=== PATIENT | female | born 1940 | race Caucasian/White ===

== ENCOUNTER → 2016-04-19 | Outpatient (CLI) | payer MEDICARE ==
--- NOTE | 2016-04-20 09:59 | MM ---
Reason for exam: screening (asymptomatic). Last mammogram was performed 1 year ago. History: Patient is postmenopausal. U/S LT Cancelled Core of the left breast, March 20, 2011. Benign excisional biopsy of the right breast. Physical Findings: A clinical breast exam by your physician is recommended on an annual basis and results should be correlated with mammographic findings. MG 3D Screening Mammo W/Cad Bilateral CC and MLO view(s) were taken. Prior study comparison: April 18, 2015, bilateral MG screening mammo w CAD. March 23, 2013, bilateral digital screening mammo w/CAD. The breast tissue is extremely dense which could obscure a lesion on mammography. Finding #1: There is a 5 mm equal density (isodense), circumscribed oval mass in the inner quadrant, central position. Finding #2: There are typically benign calcifications in the right breast. There is a chronic nodularity in the left breast. ASSESSMENT: Incomplete: need additional imaging evaluation, BI-RAD 0 RECOMMENDATION: Ultrasound of the left breast. [facility] will attempt to contact patient to return for ultrasound.
== END | disposition home or self-care (01) ==
LOC: RADMAMWWP 12:34
PROVIDERS: ATTEND Family Medicine
DX: Z12.31 Encounter for screening mammogram for malignant neoplasm of breast (principal)
CPT/HCPCS: 77063; G0202

== ENCOUNTER → 2016-05-03 | Outpatient (CLI) | payer MEDICARE ==
--- NOTE | 2016-05-03 10:40 | USB ---
Reason for exam: additional evaluation requested from abnormal screening. History: Patient is postmenopausal. U/S LT Cancelled Core of the left breast, March 20, 2011. Benign excisional biopsy of the right breast. Physical Findings: Nurse did not find any significant physical abnormalities on exam. US Breast Workup Limited LT Left breast ultrasound demonstrates a 1.3 x 0.6 x 1.2cm oval, smooth lesion at 6 o'clock just under nipple, prominent duct. These results were verbally communicated with the patient and result sheet given to the patient on 05/03/16. ASSESSMENT: Probably benign, BI-RAD 3 RECOMMENDATION: Follow-up diagnostic mammogram of the left breast in 6 months.
== END | disposition home or self-care (01) ==
LOC: RADUSWWP 08:22
PROVIDERS: ATTEND Family Medicine
DX: R92.8 Other abnormal and inconclusive findings on diagnostic imaging of breast (principal)

== ENCOUNTER → 2016-11-14 | Outpatient (CLI) | payer MEDICARE ==
--- NOTE | 2016-11-14 09:55 | MM ---
Reason for exam: follow-up at short interval from prior study. Last mammogram was performed 7 months ago. History: Patient is postmenopausal. U/S LT Cancelled Core of the left breast, March 20, 2011. Benign excisional biopsy of the right breast. Physical Findings: Nurse did not find any significant physical abnormalities on exam. MG 3D Diag Mammo W/Cad LT CC and MLO view(s) were taken of the left breast. Prior study comparison: April 19, 2016, bilateral MG 3d screening mammo w/cad. April 18, 2015, bilateral MG screening mammo w CAD. The breast tissue is heterogeneously dense. This may lower the sensitivity of mammography. No change in findings, stable. These results were verbally communicated with the patient and result sheet given to the patient on 11/14/16. ASSESSMENT: Probably benign, BI-RAD 3 RECOMMENDATION: Follow-up diagnostic mammogram of both breasts in 6 months. Back on schedule for April 2017.
== END | disposition home or self-care (01) ==
LOC: RADMAMWWP 08:56
PROVIDERS: ATTEND Family Medicine
DX: R92.8 Other abnormal and inconclusive findings on diagnostic imaging of breast (principal)
CPT/HCPCS: G0206; G0279

== ENCOUNTER → 2017-11-13 | Outpatient (CLI) | payer MEDICARE ==
--- NOTE | 2017-11-13 09:12 | MM ---
Reason for exam: additional evaluation requested from prior study. Last mammogram was performed 1 year ago. History: Patient is postmenopausal. U/S LT Cancelled Core of the left breast, March 20, 2011. Benign excisional biopsy of the right breast. Physical Findings: Nurse did not find any significant physical abnormalities on exam. MG 3D Diag Mammo W/Cad ZAHIDA Bilateral CC and MLO view(s) were taken. Prior study comparison: November 14, 2016, left breast MG 3d diag mammo w/cad LT. April 19, 2016, bilateral MG 3d screening mammo w/cad. The breast tissue is heterogeneously dense. This may lower the sensitivity of mammography. No significant new findings when compared with previous films. These results were verbally communicated with the patient and result sheet given to the patient on 11/13/17. ASSESSMENT: Benign, BI-RAD 2 RECOMMENDATION: Routine screening mammogram of both breasts in 1 year.
== END | disposition home or self-care (01) ==
LOC: RADMAMWWP 08:26
PROVIDERS: ATTEND Family Medicine
DX: R92.8 Other abnormal and inconclusive findings on diagnostic imaging of breast (principal)
CPT/HCPCS: 77066; G0279; 77062

== ENCOUNTER → 2021-08-23 | Outpatient (CLI) | payer MEDICARE ==
--- NOTE | 2021-08-24 17:32 | MM ---
Reason for Exam: Screening (asymptomatic). Last mammogram was performed 3 year(s) and 10 month(s) ago. Patient History: Menarche at age 13. First Full-Term at age 24. Postmenopausal. Benign Excisional Biopsy on the right side. 03/20/2011, U/S LT Cancelled Core on the left side. Risk Values: Ana Rosa 5 year model risk: 1.8%. NCI Lifetime model risk: 3.0%. Prior Study Comparison: 04/19/2016 Bilateral Screening Mammogram, [facility]. 11/14/2016 Left Diagnostic Mammogram, [facility]. 11/13/2017 Bilateral Diagnostic Mammogram, [facility]. Tissue Density: The breast tissue is heterogeneously dense. This may lower the sensitivity of mammography. Findings: Analyzed By CAD. No significant changes when compared with prior studies. Chronic nodularity anterior left MLO view. Benign oil cyst calcification on the right. Overall Assessment: Benign, BI-RAD 2 Management: Screening Mammogram of both breasts in 1 year. Patient should continue monthly self breast exams. This exam should not preclude additional followup of suspicious palpable abnormalities. Electronically signed and approved by: Carlos Barahona M.D. Radiologist
== END | disposition home or self-care (01) ==
LOC: RADMAMWWP 13:11
PROVIDERS: ATTEND Family Medicine
DX: Z12.31 Encounter for screening mammogram for malignant neoplasm of breast (principal); Z78.0 Asymptomatic menopausal state
CPT/HCPCS: 77063; 77067

== ENCOUNTER → 2023-11-11 | Outpatient (CLI) | payer MEDICARE ==
--- NOTE | 2023-12-10 09:04 | US ---
Patient: Anya Rowe Ordering Physician: Unknown, Unknown ID: [id number] Phone, Pager: Phone: N/ A Pager: N/A : [phone] Age/Gender: 82Y, F Primary Location: N/A Procedure: US RENALS AND BLADDER Study Date: 11/11/2023 12:31:00 PM EXAMINATION TYPE: US kidneys/renal and bladder DATE OF EXAM: 11/12/2023 COMPARISON: NONE CLINICAL INDICATION: Unknown, old with history of ; EXAM MEASUREMENTS: Right Kidney: 10.8 x 4.5 x 4.1 cm. Multiple complex areas seen, largest seen at the upper pole measur es: 2.7 x 2.3 x 2.3 cm. Left kidney: 11.7 x 5.0 x 5.2 cm. Multiple complex areas seen, largest seen at the upper pole measure s 2.8 x 2.6 x 3.4 cm. Bladder: Appears wnl. Bilateral jets were seen. There is no evidence for hydronephrosis at this point in time. No nephrolithiasis is seen. The urin eduar bladder is anechoic. Bilateral ureteral jets are seen. IMPRESSION: Complex renal lesions may reflect a complex cyst. This can be further evaluated with CT.
== END | disposition home or self-care (01) ==
LOC: RADUSWWP 14:35
PROVIDERS: ATTEND Family Medicine
DX: R94.4 Abnormal results of kidney function studies
CPT/HCPCS: 76770

== ENCOUNTER → 2023-12-12 | Outpatient (CLI) | payer MEDICARE ==
--- NOTE | 2023-12-23 21:37 | BD ---
EXAMINATION TYPE: Axial Bone Density DATE OF EXAM: 12/12/2023 CLINICAL HISTORY: 83 years old Female. 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 History of Fracture in Adulthood: pelvis Secondary Osteoporosis: 1. Type 1 Diabetes: no 2. Hyperthyroidism: no 3. Menopause before 45: no 4. Malnutrition: no 5. Chronic liver disease: no Rheumatoid Arthritis: no Current Tobacco Use: no RISK FACTORS HISTORY OF: Hip Fracture (Right/Left): no Spine Fracture: no History of Wrist Fracture: RT wrist age 11 Surgery to Spine/Hip(right/left)/Wrist (right/left): no MEDICATIONS: Thyroid Medications: no Osteoporosis Medications: no EXAM MEASUREMENTS: Bone mineral densitometry was performed using the [employer] System. Bone mineral density as measured about the Lumbar spine is: ----- L1-L4(G/cm2): 0.936 T Score Values are as follows: ----- L1: -1.7 ----- L2: -2.0 ----- L3: -2.5 ----- L4: -2.1 ----- L1-L4: -2.0 Z Score Values are as follows: ----- L1: 0.2 ----- L2: -0.1 ----- L3: -0.6 ----- L4: -0.2 ----- L1-L4: -0.2 Bone mineral density has: increased 2.0 % since study of: 04/18/2015 Bone mineral density about the R hip (g/cm2): 0.887 Bone mineral density about the L hip (g/cm2): 0.898 T Score values are as follows: -----R Neck: -1.4 -----L Neck: -1.5 -----R Total: -1.0 -----L Total: -0.9 Z Score values are as follows: -----R Neck: 0.8 -----L Neck: 0.7 -----R Total: 1.2 -----L Total: 1.2 Bone mineral density has: increased 2.3 % since study of: 04/18/2015 FRAX%s: The graph provided illustrates a 13.9% chance for a major osteoporotic fx and a 3.6% chance f or the hips probability for fx in 10 years time. IMPRESSION: Osteopenia (T Score between -2.5 and -1). There is slightly increased risk of fracture and the patient may be considered for treatment. Re-Screen 2-5 years. NOTE: T-SCORE=SD OF THE YOUNG ADULT MEAN. [facility], , 12/23/2023 9:35 PM
== END | disposition home or self-care (01) ==
LOC: RADBDWWP 07:59
PROVIDERS: ATTEND Family Medicine
DX: M81.0 Age-related osteoporosis without current pathological fracture (principal); M85.831 Other specified disorders of bone density and structure, right forearm; Z79.899 Other long term (current) drug therapy
CPT/HCPCS: 77080

== ENCOUNTER → 2023-12-25 | Outpatient (CLI) | payer MEDICARE ==
[2023-12-25 11:08] LABS: African American GFR (CKD) 77 (>60 ml/min/1.73 sqM); Blood Urea Nitrogen 20 mg/dL (7-17); Non-African American GFR(CKD) 67 (>60 ml/min/1.73 sqM)
--- NOTE | 2023-12-25 13:07 | CT ---
EXAMINATION TYPE: CT abdomen wo/w con CT DLP: 705.60 mGycm, Automated exposure control for dose reduction was used. DATE OF EXAM: 12/25/2023 12:07 PM COMPARISON: Renal ultrasound 11/11/2023 CLINICAL INDICATION:Female, 83 years old with history of N28.9 COMPLEX RENAL LESION; COMPLEX RENAL [place] TECHNIQUE: Multiphase CT of the abdomen following the administration of 100 cc of Isovue 300 IV cont rast material and oral contrast. Coronal and sagittal reformats were performed. FINDINGS: LOWER CHEST: The visualized lung bases are clear. Mitral annulus and aortic valvular calcifications. ABDOMEN LIVER: Unremarkable GALLBLADDER AND BILE DUCTS: Unremarkable. PANCREAS: Unremarkable. SPLEEN: Unremarkable. ADRENAL GLANDS: Unremarkable. KIDNEYS AND URETERS: No evidence of hydronephrosis or renal calculus. The kidneys enhance symmetrical ly. Contrast is demonstrated within both collecting systems on the delayed phase. Several bilateral t hin wall nonenhancing renal cysts identified. Largest in the posterior right lower pole cortex measur ing 1.9 cm. Largest within the left upper pole is exophytic and measures up to 2.7 cm. Additionally t here are at least 5 cortical hyperdense lesions within both kidneys on noncontrast imaging with the l argest on the right measuring up to 7 mm. Largest on the left measures up to 1.1 cm. No definitive en hancement identified within these lesions on postcontrast imaging. STOMACH AND BOWEL: Stomach and duodenum are unremarkable. Enteric contrast reaches the mid small mari l. No focal bowel wall thickening and surrounding inflammatory changes. The appendix is within normal limits. Mild colonic stool burden. No evidence of bowel obstruction. PERITONEUM: No evidence of pneumoperitoneum or free fluid. VASCULATURE: Mild atherosclerotic calcifications are present throughout the abdominal aorta and its b ranches. No evidence of aortic aneurysm. MUSCULOSKELETAL: No acute osseous abnormalities. Grade 1 anterolisthesis of L5 on S1 with bilateral p ars defects. Multilevel vertebral hemangiomas. LYMPH NODES: There are 2 enlarged lymph nodes identified within the posterior pelvis near the rectosi gmoid region measuring 9 mm and 1.1 cm respectively (series 3, image 61 and 59). And additional mildl y prominent left common iliac chain lymph node measuring 9 mm in short axis (series 8, image 54). SOFT TISSUE/ABDOMINAL WALL: Unremarkable IMPRESSION: 1. No acute abdominal process. 2. Bilateral simple renal cysts and additional bilateral complex renal cysts without suspicious enhan cement. Most consistent with proteinaceous/hemorrhagic cysts. 3. Couple of abnormal enlarged pelvic lymph nodes. Limited evaluation due to only CT abdomen exam. Ra ises concern for neoplastic process. Further evaluation with CT abdomen and pelvis is recommended. [facility], , 12/25/2023 1:04 PM
== END | disposition home or self-care (01) ==
LOC: RADCTMAIN 10:33
PROVIDERS: ATTEND Family Medicine
DX: N28.9 Disorder of kidney and ureter, unspecified
CPT/HCPCS: 36415; 74170; 82565; 84520

== ENCOUNTER → 2024-01-31 | Outpatient (CLI) | payer MEDICARE ==
[2024-01-31 14:19] LABS: African American GFR (CKD) 76 (>60 ml/min/1.73 sqM); Blood Urea Nitrogen 20 mg/dL (7-17); Non-African American GFR(CKD) 66 (>60 ml/min/1.73 sqM)
--- NOTE | 2024-02-02 00:02 | CT ---
EXAMINATION TYPE: CT pelvis w con CT DLP: 455 mGycm, Automated exposure control for dose reduction was used. DATE OF EXAM: 01/31/2024 4:11 PM COMPARISON: CT abdomen 12/25/2023 CLINICAL INDICATION:Female, 83 years old with history of R59.1 GENERALIZED ENLARGED LYMPH NODES; c/o right hip pain TECHNIQUE: Standard CT of the pelvis following the administration of 100 cc of Isovue [address] material and oral contrast. Coronal and sagittal reformats were performed. FINDINGS: KIDNEYS AND URETERS: The visualized portions of the inferior bilateral kidneys enhance symmetrically. There are subcentimeter hypodense foci within both inferior portions of the visualized kidneys likel y representing cysts. BLADDER: Incompletely distended but grossly unremarkable. REPRODUCTIVE: Unremarkable. BOWEL: Enteric contrast reaches the ileocecal junction. The appendix is within normal limits. No foca l bowel wall thickening identified. Sigmoid diverticulosis without surrounding inflammatory changes t o suggest acute diverticulitis. Stools present throughout the visualized colon. No evidence of bowel obstruction. PERITONEUM: No evidence of pneumoperitoneum or free fluid. VASCULATURE: Mild atherosclerotic calcification of the visualized distal abdominal aorta and its bran ches. No visualized aneurysm. Left sided pelvic phlebolith. MUSCULOSKELETAL: No acute osseous abnormalities. Grade 1 anterolisthesis of L5 on S1 with bilateral p ars defects. Advanced degenerative disc disease at L5-S1. Remote healed bilateral inferior pubic rami fractures. Multilevel benign vertebral hemangiomas are demonstrated. LYMPH NODES: There are 2 stable enlarged lymph nodes identified within the posterior pelvis near the rectosigmoid region measuring 0.9 cm and 1.1 cm respectively (series 3, image 28 and 27). Additional subcentimeter mildly prominent adjacent lymph nodes identified. Additional stable mildly prominent 0. 9 cm short axis lymph node within the left common iliac chain (series 3, image 19). No other enlarged lymph nodes greater the 1 cm short axis identified. SOFT TISSUE/ABDOMINAL WALL: Unremarkable IMPRESSION: 1. Stable mildly enlarged few pelvic lymph nodes from prior CT . Raises concern for possible n eoplastic process/metastasis versus other etiologies such as reactive. No other suspicious abnormalit ies identified within the visualized pelvis. 2. Sigmoid diverticulosis without evidence for acute diverticulitis. [facility], , 02/02/2024 12:00 AM
== END | disposition home or self-care (01) ==
LOC: RADCTMAIN 13:29
PROVIDERS: ATTEND Family Medicine
DX: K57.30 Diverticulosis of large intestine without perforation or abscess without bleeding (principal); R59.1 Generalized enlarged lymph nodes
CPT/HCPCS: 82565; 84520; 72193; 36415; Q9967

== ENCOUNTER → 2024-05-22 | Outpatient (CLI) | payer MEDICARE ==
[2024-05-22 09:04] LABS: African American GFR (CKD) 85 (>60 ml/min/1.73 sqM); Blood Urea Nitrogen 23 mg/dL (7-17); Non-African American GFR(CKD) 74 (>60 ml/min/1.73 sqM)
--- NOTE | 2024-05-22 18:36 | CT ---
EXAMINATION TYPE: CT pelvis w con DATE OF EXAM: 05/22/2024 10:37 AM COMPARISON: None. CLINICAL INDICATION: Female, 83 years old with history of R59.1 GENERALIZED ENLARGED LYMPH NODES, ENL ARGED LYMPH NODES TECHNIQUE: Axial images were obtained from above the diaphragm to the pubic rami in the axial plane a t 5 mm thick sections. Reconstructed images are reviewed on the computer in the coronal plane. CONTRAST: 100 mL of Isovue 300. Study performed with Oral Contrast DLP: 539.2 mGycm, Automated exposure control for dose reduction was used. FINDINGS: CT PELVIS: Loops of bowel within the abdomen and pelvis are normal. There are loops of bowel which are incom pletely distended or lack oral contrast limiting their evaluation. Appendix: Normal as visualized. Urinary bladder: Normal. Genitourinary structures: Uterus is normal. Adnexa are unremarkable. Osseous structures: No suspicious lytic or sclerotic lesions. Lymphadenopathy: Couple of small inguinal lymph nodes are present. A 1.1 cm lymph node is near the me dial left inguinal region, series 3 image 41 is stable. Previously enlarged left common iliac chain lymph node currently measures 1.2 cm. This is slightly la rger than the 0.9 cm previous. A perirectal lymph node measures 1.3 cm, series 3 image 28. Previous m easurement 1.2 cm which is within measurement error. Previous mid pelvic lymph node measures 0.96 cm, previous measurement 0.93 cm. COMPARISON: IMPRESSION: 1. There are stable prominent lymph nodes within the pelvis discussed above. No enlarging or new juliet picious adenopathy evident. [facility], Workstation: [id number], 05/22/2024 6:34 PM
== END | disposition home or self-care (01) ==
LOC: RADCTMAIN 08:09
PROVIDERS: ATTEND Family Medicine
DX: R59.1 Generalized enlarged lymph nodes (principal)
CPT/HCPCS: 82565; 84520; 72193; 36415; Q9967

== ENCOUNTER 2024-07-17 18:51 | Inpatient (IN) | payer MEDICARE ==
[2024-07-17] MEDS: DILTIAZEM 125 MG in DEXTROSE 5% IN WATER 100 ML IV SCH (19:43)
[2024-07-17] MEDS: DILTIAZEM 5 MG/ML 5 ML VIAL IVP STA (19:43)
[2024-07-17 19:50] LABS: Basophils # (A) 0.03 10*3/uL (0.00-0.10); Basophils % (A) 0.4 %; Eosinophils # (A) 0.06 10*3/uL (0.04-0.35); Eosinophils % (A) 0.8 %; HCT 40.3 % (37.2-46.3); HGB 13.2 g/dL (12.0-15.0); Lymphocytes # (A) 1.64 10*3/uL (0.90-5.00); Lymphocytes % (A) 22.1 %; MCH 31.1 pg (27.0-32.0); MCHC 32.8 g/dL (32.0-37.0); Mean Platelet Volume 9.3 fL (9.5-12.2); Monocytes # (A) 0.58 10*3/uL (0.20-1.00); Monocytes % (A) 7.8 %; Neutrophils # (A) 5.09 10*3/uL (1.80-7.70); Neutrophils % (A) 68.5 %; Platelet Count 341 10*3/uL (140-440); RBC 4.24 10*6/uL (4.10-5.20); RDW 12.9 % (11.5-14.5); WBC 7.43 10*3/uL (4.50-10.00)
--- NOTE | 2024-07-17 19:59 | ED ---
General Adult HPI - General Chief complaint: Shortness of Breath Stated complaint: SAIRA, wenceslao leg numbness Time Seen by Provider: 07/17/24 19:08 Source: patient, RN notes reviewed, old records reviewed Mode of arrival: ambulatory Limitations: no limitations - History of Present Illness Initial comments: 83-year-old female presenting with exertional dyspnea over the past 1 week. No prior history of CAD no history of CHF or COPD. Denies lower extremity pain or swelling. Denies central chest pain. She has had palpitation and racing heart sensation. No prior history of arrhythmia. Patient has not had significant vomiting or diarrhea. No fever. - Related Data Home Medications Medication Instructions Recorded Confirmed Famotidine [Pepcid] 20 mg PO HS 07/17/24 07/17/24 Lansoprazole [Prevacid] 30 mg PO DAILY 07/17/24 07/17/24 Simvastatin [Zocor] 10 mg PO HS 07/17/24 07/17/24 Zolpidem [Ambien] 15 mg PO HS 07/17/24 07/17/24 amLODIPine [Norvasc] 5 mg PO DAILY 07/17/24 07/17/24 Allergies Allergy/AdvReac Type Severity Reaction Status Date / Time Sulfa (Sulfonamide Allergy Unknown Verified 07/17/24 19:24 Antibiotics) Review of Systems ROS Statement: Those systems with pertinent positive or pertinent negative responses have been documented in the HPI. ROS Other: All systems not noted in ROS Statement are negative. Past Medical History Additional Past Medical History / Comment(s): Colitis History of Any Multi-Drug Resistant Organisms: None Reported Past Surgical History: No Surgical Hx Reported Past Psychological History: No Psychological Hx Reported Smoking Status: Never smoker Past Alcohol Use History: Rare Past Drug Use History: None Reported General Exam Limitations: no limitations General appearance: alert, in no apparent distress Head exam: Present: atraumatic, normocephalic Eye exam: Present: normal appearance, PERRL ENT exam: Present: normal exam Neck exam: Present: normal inspection Respiratory exam: Present: rales, decreased breath sounds. Absent: respiratory distress, wheezes Cardiovascular Exam: Present: tachycardia, irregular rhythm GI/Abdominal exam: Present: soft. Absent: distended, tenderness, guarding Extremities exam: Present: normal inspection, normal capillary refill. Absent: calf tenderness Neurological exam: Present: alert, oriented X3 Psychiatric exam: Present: normal affect, normal mood Skin exam: Present: warm, dry, intact Course Vital Signs 07/17/24 07/17/24 18:57 20:06 Temperature 97.5 F L Pulse Rate 158 H 131 H Respiratory 20 20 Rate Blood Pressure 181/106 128/91 O2 Sat by Pulse 96 91 L Oximetry Medical Decision Making - Medical Decision Making Was pt. sent in by a medical professional or institution (, [facility], [facility], urgent care, hospital, or care home...) When possible be specific @ -No Did you speak to anyone other than the patient for history (EMS, parent, family, police, friend...)? What history was obtained from this source @ -No Did you review nursing and triage notes (agree or disagree)? Why? @ -I reviewed and agree with nursing and triage notes Were old charts reviewed (outside hosp., previous admission, EMS record, old EKG, old radiological studies, urgent care reports/EKG's, care home records)? Report findings @ -No old charts were reviewed Differential Dyspnea: Coronary syndrome, arrhythmia, tamponade, asthma, COPD, pulmonary embolism, pneumonia, pneumothorax, pulmonary effusion, anaphylaxis, diabetic ketoacidosis, flailed chest, pulmonary contusion, diaphragmatic rupture, anemia, neuromuscular, this is not meant to be an all-inclusive list. EKG interpreted by me (3pts min.). @ -[Atrial fibrillation with RVR rate of 127, QRS duration 85, QTc [address] segment elevation. X-rays interpreted by me (1pt min.). @X-ray showing CHF, bilateral effusions, worse on the left CT interpreted by me (1pt min.). @ -None done U/S interpreted by me (1pt. min.). @ -None done What testing was considered but not performed or refused? (CT, X-rays, U/S, labs)? Why? @ -None What meds were considered but not given or refused? Why? @ -None Did you discuss the management of the patient with other professionals (professionals i.e. [facility], [facility], lab, RT, psych nurse, healthcare social worker, public relations account supervisor, teacher, correctional probation officer, case briefer)? Give summary @ -[Dr. Hinojosa Was smoking cessation discussed for >3mins.? @ -No Was critical care preformed (if so, how long)? @ -yes 35 min Were there social determinants of health that impacted care today? How? (Home lessness, low income, unemployed, alcoholism, drug addiction, transportation, low edu. Level, literacy, decrease access to med. care, longterm, rehab)? @ -No Was there de-escalation of care discussed even if they declined (Discuss DNR or withdrawal of care, Hospice)? DNR status @ -No What co-morbidities impacted this encounter? (DM, HTN, Smoking, COPD, CAD, Cancer, CVA, ARF, Chemo, Hep., AIDS, mental health diagnosis, sleep apnea, morbid obesity)? @ -None Was patient admitted / discharged? Hospital course, mention meds given and route, prescriptions, significant lab abnormalities, going to OR and other pertinent info. @83-year-old female presenting with palpitation, dyspnea, patient found to be in atrial fibrillation with RVR. No prior history of A-fib. Chest x-ray concerning for CHF with bilateral pleural effusions. BNP is elevated. Troponin is negative. The remainder laboratory testing is unremarkable. Patient is started on Lasix, heparin, Cardizem. She is admitted to her primary care provider Dr. Hinojosa with cardiology on consultation. Echo has been ordered. Undiagnosed new problem with uncertain prognosis? @ -No Drug Therapy requiring intensive monitoring for toxicity (Heparin, Nitro, Insulin, Cardizem)? @ -No Were any procedures done? @ -No Diagnosis/symptom? @ -New onset A-fib RVR, congestive heart failure Acute, or Chronic, or Acute on Chronic? @ -[Acute Uncomplicated (without systemic symptoms) or Complicated (systemic symptoms)? @ -Default Side effects of treatment? @ -No Exacerbation, Progression, or Severe Exacerbation? @ -No Poses a threat to life or bodily function? How? (Chest pain, USA, SC, pneumonia, PE, COPD, DKA, ARF, appy, cholecystitis, CVA, Diverticulitis, Homicidal, Suicidal, threat to staff... and all critical care pts) @ -Yes, arrhythmia, CHF - Lab Data Result diagrams: 07/17/24 19:39 07/17/24 19:39 Lab Results 07/17/24 07/17/24 07/17/24 Range/Units 19:39 19:39 19:39 WBC 7.43 (4.50-10.00) 10*3/uL RBC 4.24 (4.10-5.20) 10*6/uL Hgb 13.2 (12.0-15.0) g/dL Hct 40.3 (37.2-46.3) % MCV 95.0 (80.0-97.0) fL MCH 31.1 (27.0-32.0) pg MCHC 32.8 (32.0-37.0) g/dL Plt Count 341 (140-440) 10*3/uL MPV 9.3 L (9.5-12.2) fL Immature Gran % (Auto) 0.4 % Neutrophils % 68.5 % Lymphocytes % 22.1 % Monocytes % 7.8 % Eosinophils % 0.8 % Basophils % 0.4 % Immature Gran # 0.03 (0.00-0.04) 10*3/uL Neutrophils # 5.09 (1.80-7.70) 10*3/uL Lymphocytes # 1.64 (0.90-5.00) 10*3/uL Monocytes # 0.58 (0.20-1.00) 10*3/uL Eosinophils # 0.06 (0.04-0.35) 10*3/uL Basophils # 0.03 (0.00-0.10) 10*3/uL PT 11.1 (10.0-12.5) sec INR 1.0 (<1.2) APTT 21.9 L (22.0-30.0) sec Sodium 140 (137-145) mmol/L Potassium 3.9 (3.5-5.1) mmol/L Chloride 108 H (98-107) mmol/L Carbon Dioxide 22 (22-30) mmol/L Anion Gap 10 mmol/L BUN 23 H (7-17) mg/dL Creatinine 0.80 (0.52-1.04) mg/dL Est GFR (CKD-EPI)AfAm 80 (>60 ml/min/1.73 sqM) Est GFR (CKD-EPI)NonAf 69 (>60 ml/min/1.73 sqM) Glucose 111 H (74-99) mg/dL Calcium 10.0 (8.4-10.2) mg/dL Magnesium 2.0 (1.6-2.3) mg/dL Total Bilirubin 0.8 (0.2-1.3) mg/dL AST 22 (14-36) U/L ALT 21 (4-34) U/L Alkaline Phosphatase 97 (38-126) U/L Troponin I (0.000-0.034) ng/mL NT-Pro-B Natriuret Pep 1970 pg/mL Total Protein 7.0 (6.3-8.2) g/dL Albumin 4.0 (3.5-5.0) g/dL 07/17/24 Range/Units 19:39 WBC (4.50-10.00) 10*3/uL RBC (4.10-5.20) 10*6/uL Hgb (12.0-15.0) g/dL Hct (37.2-46.3) % MCV (80.0-97.0) fL MCH (27.0-32.0) pg MCHC (32.0-37.0) g/dL Plt Count (140-440) 10*3/uL MPV (9.5-12.2) fL Immature Gran % (Auto) % Neutrophils % % Lymphocytes % % Monocytes % % Eosinophils % % Basophils % % Immature Gran # (0.00-0.04) 10*3/uL Neutrophils # (1.80-7.70) 10*3/uL Lymphocytes # (0.90-5.00) 10*3/uL Monocytes # (0.20-1.00) 10*3/uL Eosinophils # (0.04-0.35) 10*3/uL Basophils # (0.00-0.10) 10*3/uL PT (10.0-12.5) sec INR (<1.2) APTT (22.0-30.0) sec Sodium (137-145) mmol/L Potassium (3.5-5.1) mmol/L Chloride (98-107) mmol/L Carbon Dioxide (22-30) mmol/L Anion Gap mmol/L BUN (7-17) mg/dL Creatinine (0.52-1.04) mg/dL Est GFR (CKD-EPI)AfAm (>60 ml/min/1.73 sqM) Est GFR (CKD-EPI)NonAf (>60 ml/min/1.73 sqM) Glucose (74-99) mg/dL Calcium (8.4-10.2) mg/dL Magnesium (1.6-2.3) mg/dL Total Bilirubin (0.2-1.3) mg/dL AST (14-36) U/L ALT (4-34) U/L Alkaline Phosphatase (38-126) U/L Troponin I <0.012 (0.000-0.034) ng/mL NT-Pro-B Natriuret Pep pg/mL Total Protein (6.3-8.2) g/dL Albumin (3.5-5.0) g/dL Critical Care Time Critical Care Time: Yes Total Critical Care Time: 35 Disposition Clinical Impression: Congestive heart failure, Atrial fibrillation with RVR Disposition: ADMITTED IP TO THIS [facility] Condition: Stable Is patient prescribed a controlled substance at d/c from ED?: No Referrals: Tung Hinojosa MD [Primary Care Provider] - 1-2 days Time of Disposition: 20:17
--- NOTE | 2024-07-17 20:02 | XR ---
EXAMINATION TYPE: XR chest 2V DATE OF EXAM: 07/17/2024 7:56 PM COMPARISON: None. CLINICAL INDICATION: Female, 83 years old with history of difficulty breathing: Shortness of breath TECHNIQUE: XR chest 2V views of the chest are obtained. FINDINGS: Scattered senescent parenchymal changes noted. Hyperinflation compatible with COPD. Pulmonary venous congestion with basilar effusions and probable compressive atelectasis. Borderline c ardiomegaly. Correlate for congestive failure. Infiltrates of other etiology not excluded. Correlate clinically. Mediastinal structures are stable and grossly unremarkable. No evidence for hilar prominence. Degenerative changes dorsal spine. IMPRESSION: 1. Pulmonary venous congestion with basilar effusions and probable compressive atelectasis. Borderlin e cardiomegaly. Correlate for congestive failure. Infiltrates of other etiology not excluded. Correla te clinically. [facility], , 07/17/2024 8:00 PM
[2024-07-17 20:03] LABS: ALT 21 U/L (4-34); AST 22 U/L (14-36); African American GFR (CKD) 80 (>60 ml/min/1.73 sqM); Alkaline Phosphatase 97 U/L (38-126); Anion Gap 10 mmol/L; Blood Urea Nitrogen 23 mg/dL (7-17); Carbon Dioxide 22 mmol/L (22-30); Chloride 108 mmol/L (98-107); Glucose 111 mg/dL (74-99); Non-African American GFR(CKD) 69 (>60 ml/min/1.73 sqM); Potassium 3.9 mmol/L (3.5-5.1); Sodium 140 mmol/L (137-145); Total Bilirubin 0.8 mg/dL (0.2-1.3)
[2024-07-17 20:05] LABS: Prothrombin Time 11.1 sec (10.0-12.5)
[2024-07-17 20:09] LABS: Partial Thromboplastin Time 21.9 sec (22.0-30.0)
[2024-07-17 20:10] LABS: NT-Pro-B-Type Natriuretic Pept 1970 pg/mL
[2024-07-17] MEDS ORDERED: NALOXONE 0.4 MG/ML 1 ML VIAL IV PRN (20:17)
[2024-07-17] MEDS: FUROSEMIDE 10 MG/ML 4 ML VIAL IV STA (20:37)
[2024-07-17] MEDS: HEPARIN SOD,PORK IN 0.45% NACL 25,000 UNIT in 0.45% NACL 1 250ML.BAG IV SCH (20:45)
[2024-07-17] MEDS: HEPARIN SODIUM 1,000 UN/ML (10ML VL) IV ONE (20:46)
[2024-07-17] MEDS: FUROSEMIDE 10 MG/ML 2 ML VIAL IV SCH (21:06)
[2024-07-18 01:57] LABS: Basophils # (A) 0.03 10*3/uL (0.00-0.10); Basophils % (A) 0.4 %; Eosinophils # (A) 0.11 10*3/uL (0.04-0.35); Eosinophils % (A) 1.4 %; HCT 38.9 % (37.2-46.3); HGB 12.2 g/dL (12.0-15.0); Lymphocytes # (A) 2.24 10*3/uL (0.90-5.00); Lymphocytes % (A) 28.4 %; MCH 30.2 pg (27.0-32.0); MCHC 31.4 g/dL (32.0-37.0); MCV 96.3 fL (80.0-97.0); Mean Platelet Volume 9.3 fL (9.5-12.2); Monocytes # (A) 0.85 10*3/uL (0.20-1.00); Monocytes % (A) 10.8 %; Neutrophils # (A) 4.66 10*3/uL (1.80-7.70); Neutrophils % (A) 58.9 %; Platelet Count 348 10*3/uL (140-440); RBC 4.04 10*6/uL (4.10-5.20)
[2024-07-18 02:11] LABS: Partial Thromboplastin Time 28.4 sec (22.0-30.0); Prothrombin Time 11.2 sec (10.0-12.5)
[2024-07-18] MEDS: HEPARIN SODIUM 1,000 UN/ML (10ML VL) IV PRN (02:35)
[2024-07-18] MEDS: ACETAMINOPHEN TAB 325 MG TAB PO PRN (08:51)
[2024-07-18] MEDS: METOPROLOL TARTRATE 50 MG TAB PO SCH (09:43)
[2024-07-18] MEDS: APIXABAN 5 MG TAB PO SCH (09:43)
--- NOTE | 2024-07-18 10:37 | P.CRDCN ---
History of Present Illness Consult date: 07/18/24 History of present illness: - . HPI: This is a 83-year-old lady with a known history of hypertension and hypercholesterolemia currently takes simvastatin and Norvasc. She sees Dr. Hinojosa as her primary care physician does not see a rib matcher and fitter. She came in with increasing shortness of breath of 1 week duration without prior history of any coronary disease, COPD. She has noted some fluttering feeling in the chest for about a week and felt that her stamina has decreased. She was found to be in atrial fibrillation with a moderately rapid ventricular rate has been placed on Cardizem drip with some modest improvement in rate. She is resting comfortably denies any chest pain at rest but does have some shortness of breath with activity. RELEVANT PAST MEDICAL HISTORY: Benign hypertension and hypercholesterolemia. MEDICATIONS: On Zocor 10 mg daily amlodipine 5 mg daily Pepcid and Prevacid. ALLERGIES: Sulfa. REVIEW OF SYSTEMS: Remarkable for 2-week duration of increasing shortness of breath that got worse over a week. Rare palpitations occasional dizziness and fatigue. No hematemesis melena genitourinary no fever with chills or cough with. PHYSICIAL EXAM: Vitals are stable heart rate is about 98 bpm irregular JVD not evident S1-S2 heard normally with a regular rate and rhythm short systolic murmur at the base lungs reveal bilateral diminished air entry abdomen is soft nontender lower extremities reveal diminished pulses Central nervous system is grossly within normal limits.. IMPRESSION: 1. New onset atrial fibrillation. 2. Benign hypertension. 3. Hypercholesterolemia. 4. No evidence of diabetes or CVA or heart failure. 5.. RECOMMENDATIONS: I will initiate her on Eliquis 5 mg twice daily discontinue heparin drip discontinue Cardizem Place her on metoprolol tartrate 50 mg 3 times daily for rate control and based on clinical course will make further recommendations. Thyroid functions are normal will discontinue Lasix. Based on clinical course we will make further recommendations explained my thoughts in detail to the patient and her . Will check LV function by echo today.. Past Medical History Additional Past Medical History / Comment(s): Colitis History of Any Multi-Drug Resistant Organisms: None Reported Past Surgical History: No Surgical Hx Reported Past Anesthesia/Blood Transfusion Reactions: No Reported Reaction Past Psychological History: No Psychological Hx Reported Smoking Status: Never smoker Past Alcohol Use History: Rare Past Drug Use History: None Reported Medications and Allergies Home Medications Medication Instructions Recorded Confirmed Type Famotidine [Pepcid] 20 mg PO HS 07/17/24 07/17/24 History Lansoprazole [Prevacid] 30 mg PO DAILY 07/17/24 07/17/24 History Simvastatin [Zocor] 10 mg PO HS 07/17/24 07/17/24 History Zolpidem [Ambien] 15 mg PO HS 07/17/24 07/17/24 History amLODIPine [Norvasc] 5 mg PO DAILY 07/17/24 07/17/24 History Allergies Allergy/AdvReac Type Severity Reaction Status Date / Time Sulfa (Sulfonamide Allergy Unknown Verified 07/17/24 19:24 Antibiotics) Physical Exam Vitals: Vital Signs Temp Pulse Pulse Resp BP BP Pulse Ox 07/18/24 08:43 98.4 F 109 H 16 142/76 93 L 07/18/24 03:58 18 07/18/24 02:20 98.0 F 105 H 18 120/88 93 L 07/18/24 00:12 135 H 16 136/85 93 L 07/17/24 21:23 112 H 18 144/88 95 07/17/24 20:24 98.1 F 99 18 145/78 96 07/17/24 20:06 131 H 20 128/91 91 L 07/17/24 18:57 97.5 F L 158 H 20 181/106 96 Intake and Output 07/17/24 07/18/24 07/18/24 22:59 06:59 14:59 Intake Total 74.953 72.667 Output Total 0 0 Balance 0 74.953 72.667 Intake: Intake, IV Titration 74.953 72.667 Amount Diltiazem 125 mg In 29.417 72.667 Dextrose 5% in Water 100 ml @ 5 MG/HR 5 mls/hr IV .Q24H [facility] Rx#:[id number] Heparin Sod,Pork in 0.45% 45.536 NaCl 25,000 unit In 0.45 % NaCl 1 250ml.bag @ 12 UNITS/KG/HR 7.784 mls/hr IV .Q24H [facility] Rx#: [id number] Output: Urine 0 0 Other: Voiding Method Toilet Weight 64.864 kg 63.8 kg Results 07/18/24 01:47 07/17/24 19:39 Cardiac Enzymes 07/17/24 07/17/24 Range/Units 19:39 19:39 AST 22 (14-36) U/L Troponin I <0.012 (0.000-0.034) ng/mL Coagulation 07/17/24 07/18/24 07/18/24 Range/Units 19:39 01:47 07:30 PT 11.1 11.2 (10.0-12.5) sec APTT 21.9 L 28.4 42.0 H (22.0-30.0) sec CBC 07/17/24 07/18/24 Range/Units 19:39 01:47 WBC 7.43 7.90 (4.50-10.00) 10*3/uL RBC 4.24 4.04 L (4.10-5.20) 10*6/uL Hgb 13.2 12.2 (12.0-15.0) g/dL Hct 40.3 38.9 (37.2-46.3) % Plt Count 341 348 (140-440) 10*3/uL Comprehensive Metabolic Panel 07/17/24 Range/Units 19:39 Sodium 140 (137-145) mmol/L Potassium 3.9 (3.5-5.1) mmol/L Chloride 108 H (98-107) mmol/L Carbon Dioxide 22 (22-30) mmol/L BUN 23 H (7-17) mg/dL Creatinine 0.80 (0.52-1.04) mg/dL Glucose 111 H (74-99) mg/dL Calcium 10.0 (8.4-10.2) mg/dL AST 22 (14-36) U/L ALT 21 (4-34) U/L Alkaline Phosphatase 97 (38-126) U/L Total Protein 7.0 (6.3-8.2) g/dL Albumin 4.0 (3.5-5.0) g/dL Current Medications Generic Name Dose Route Start Last Admin Trade Name Freq PRN Reason Stop Dose Admin Acetaminophen 650 mg 07/17/24 20:17 07/18/24 08:51 Acetaminophen Tab 325 Mg Tab PO 650 mg Q6HR PRN Administration Mild Pain or Fever > 100.5 Apixaban 5 mg 07/18/24 09:00 07/18/24 09:43 Apixaban 5 Mg Tab PO 5 mg BID [facility] Administration Protocol Metoprolol Tartrate 50 mg 07/18/24 09:00 07/18/24 09:43 Metoprolol Tartrate 50 Mg Tab PO 50 mg TID [facility] Administration Naloxone HCl 0.2 mg 07/17/24 20:17 Naloxone 0.4 Mg/Ml 1 Ml Vial IV Q2M PRN Opioid Reversal Intake and Output 07/17/24 07/18/24 07/18/24 22:59 06:59 14:59 Intake Total 74.953 72.667 Output Total 0 0 Balance 0 74.953 72.667 Intake: Intake, IV Titration 74.953 72.667 Amount Diltiazem 125 mg In 29.417 72.667 Dextrose 5% in Water 100 ml @ 5 MG/HR 5 mls/hr IV .Q24H [facility] Rx#:[id number] Heparin Sod,Pork in 0.45% 45.536 NaCl 25,000 unit In 0.45 % NaCl 1 250ml.bag @ 12 UNITS/KG/HR 7.784 mls/hr IV .Q24H [facility] Rx#: [id number] Output: Urine 0 0 Other: Voiding Method Toilet Weight 64.864 kg 63.8 kg 07/18/24 01:47 07/17/24 19:39
--- NOTE | 2024-07-18 13:44 | CA ---
Transthoracic Echo Report Name: Ayna Rowe Age: 83 Gender: F : 1940 Exam Date: 07/18/2024 08:08 Exam Location: [facility] Ht (in): 63 Wt (lb): 143 Ordering Physician: Eriberto Sevilla MD Attending/Referring Phys: [id number], Roel Digital Marketing Program Manager Vanessa Penaloza RDCS Procedure CPT: Indications: chf Cardiac Hx: COPD Technical Quality: Fair Contrast 1: Total Dose (mL): Contrast 2: Total Dose (mL): MEASUREMENTS (Male / Female) Normal Values 2D ECHO LV Diastolic Diameter PLAX 4.1 cm 4.2 - 5.9 / 3.9 - 5.3 cm LV Systolic Diameter PLAX 3.7 cm IVS Diastolic Thickness 1.2 cm 0.6 - 1.0 / 0.6 - 0.9 cm LVPW Diastolic Thickness 1.1 cm 0.6 - 1.0 / 0.6 - 0.9 cm LV Relative Wall Thickness 0.6 RV Internal Dim ED PLAX 2.7 cm LVOT Diameter 2.3 cm LA Systolic Diameter LX 4.5 cm 3.0 - 4.0 / 2.7 - 3.8 cm LV Diastolic Volume MOD BP 105.9 cm??? 67 - 155 / 56 - 104 cm??? LV Systolic Volume MOD BP 53.9 cm??? 22 - 58 / 19 - 49 cm??? LV Ejection Fraction MOD BP 49.1 % >= 55 % LV Cardiac Index MOD BP 3525.2 cm???/min???m??? LV Diastolic Volume MOD 4C 99.1 cm??? LV Systolic Volume MOD 4C 51.6 cm??? LV Ejection Fraction MOD 4C 48.0 % LV Cardiac Index MOD 4C 3225.8 cm???/min???m??? LV Diastolic Length 4C 7.2 cm LV Systolic Length 4C 5.8 cm LV Diastolic Volume MOD 2C 107.2 cm??? LV Systolic Volume MOD 2C 51.3 cm??? LV Ejection Fraction MOD 2C 52.2 % LV Cardiac Index MOD 2C 3791.7 cm???/min???m??? LV Diastolic Length 2C 7.6 cm LV Systolic Length 2C 6.5 cm LA Volume 77.1 cm??? 18 - 58 / 22 - 52 cm??? LA Volume Index 45.1 cm???/m??? 16 - 28 cm???/m??? M-MODE Aortic Root Diameter MM 2.9 cm DOPPLER AV Peak Velocity 215.8 cm/s AV Peak Gradient 18.6 mmHg AV Mean Velocity 137.1 cm/s AV Mean Gradient 8.7 mmHg AV Velocity Time Integral 39.8 cm AI Peak Velocity 250.9 cm/s AI Peak Gradient 25.2 mmHg AI Pressure Half Time 462.2 ms LVOT Peak Velocity 119.6 cm/s LVOT Peak Gradient 5.7 mmHg LVOT Velocity Time Integral 19.9 cm LVOT Stroke Volume 79.3 cm??? LVOT Stroke Volume Index 47.3 ml/m??? LVOT Cardiac Index 5378.3 cm???/min???m??? AV Area Cont Eq vti 2.0 cm??? AV Area Cont Eq pk 2.2 cm??? MV Area PHT 4.4 cm??? MR Peak Velocity 543.3 cm/s MR Peak Gradient 118.1 mmHg MV Deceleration Time 167.6 ms TR Peak Velocity 333.3 cm/s TR Peak Gradient 44.4 mmHg Right Ventricular Systolic Press 49.4 mmHg FINDINGS Left Ventricle Left ventricular ejection fraction is estimated at 45 %. Left ventricular cavity size normal. Mildly increased septal wall thickness. Mildly increased posterior wall thickness. Mildly increased left ventricular diastolic volume. Mildly increased left ventricular systolic volume. Mildly decreased left ventricular ejection fraction. Right Ventricle Normal right ventricular size. Moderate pulmonary hypertension. Right ventricular systolic pressure estimated at 50 mm hg. Right Atrium Normal right atrial size. No right atrial thrombus or mass seen. Left Atrium Moderately increased left atrial diameter. Severely increased left atrial volume. Mildly increased left atrial area. No left atrial thrombus or mass present. Mitral Valve Mitral valve thickened. No evidence for mitral valve prolapse. No mitral stenosis. Severe mitral regurgitation. Aortic Valve Trileaflet aortic valve. Aortic valve sclerosis. Mild aortic stenosis with a peak gradient of 19 mmHg and a mean gradient of 9 mmHg. Mild aortic regurgitation. Tricuspid Valve Structurally normal tricuspid valve. Severe tricuspid regurgitation. Pulmonic Valve Pulmonic valve not well visualized. Pericardium No pericardial effusion. Pleural effusion. Aorta Normal size aortic root and proximal ascending aorta. CONCLUSIONS LVEF 45% Mildly reduced global LV systolic function Mild concentric LVH Severe mitral regurgitation Moderate pulmonary hypertension with RVSP of 50 mmHg Moderate to severe LA dilatation Severe tricuspid regurgitation Previewed by: Dr Grady Fay (Electronically Signed) Final Date: 18 July 2024 13:44
[2024-07-18] MEDS: FAMOTIDINE 20 MG TAB PO SCH (21:28)
[2024-07-18] MEDS: ATORVASTATIN 10 MG TAB PO SCH (21:28)
[2024-07-18] MEDS: ZOLPIDEM 5 MG TAB PO SCH (22:03)
[2024-07-19] MEDS: PANTOPRAZOLE 40 MG TABLET PO SCH (08:21)
--- NOTE | 2024-07-19 09:30 | P.PN ---
Subjective Progress Note Date: 07/19/24 HPI: This is a 83-year-old lady with a known history of hypertension and hypercholesterolemia currently takes simvastatin and Norvasc. She sees Dr. Hinojosa as her primary care physician does not see a customs director. She came in with increasing shortness of breath of 1 week duration without prior history of any coronary disease, COPD. She has noted some fluttering feeling in the chest for about a week and felt that her stamina has decreased. She was found to be in atrial fibrillation with a moderately rapid ventricular rate has been placed on Cardizem drip with some modest improvement in rate. She is resting comfortably denies any chest pain at rest but does have some shortness of breath with activity. RELEVANT PAST MEDICAL HISTORY: Benign hypertension and hypercholesterolemia. MEDICATIONS: On Zocor 10 mg daily amlodipine 5 mg daily Pepcid and Prevacid. ALLERGIES: Sulfa. 07/19 Patient seen and examined. Patient remains in atrial fibrillation but rate is much better controlled. Yesterday, she was started on Eliquis as well as Lopressor 50 mg twice daily and Cardizem drip was discontinued. Echocardiogram reveals EF of 45%, severe mitral regurgitation, moderate pulmonary hypertension with RVSP 50 mmHg, severe tricuspid regurgitation, aortic valve sclerosis. PHYSICIAL EXAM: Vitals are stable heart rate is about 98 bpm irregular JVD not evident S1-S2 heard normally with a irregular rate and rhythm short systolic murmur at the base lungs reveal bilateral diminished air entry abdomen is soft nontender lower extremities reveal diminished pulses Central nervous system is grossly within normal limits.. IMPRESSION: 1. New onset paroxysmal atrial fibrillation, currently rate controlled. 2. Benign hypertension. 3. Hypercholesterolemia. 4. No evidence of diabetes or CVA or heart failure. RECOMMENDATIONS: Continue patient on Eliquis 5 mg twice daily Continue metoprolol tartrate 50 mg 3 times daily Obtain TSH and reflex free T4 Change atorvastatin to 20 mg Start patient on amiodarone bolus followed by drip. Continue telemetry monitoring Nurse practitioner note has been reviewed, I agree with documented findings and plan of care. Patient was seen and examined. Objective - Vital Signs Vital signs: Vital Signs Temp 97.9 F 07/19/24 08:19 Pulse 103 H 07/19/24 08:19 Resp 16 07/19/24 08:19 BP 133/68 07/19/24 08:19 Pulse Ox 95 07/19/24 08:19 FiO2 Intake & Output 07/18/24 07/19/24 07/19/24 18:59 06:59 18:59 Intake Total 192.667 Balance 192.667 Weight 63.7 kg Intake: Intake, IV Titration 72.667 Amount Diltiazem 125 mg In 72.667 Dextrose 5% in Water 100 ml @ 5 MG/HR 5 mls/hr IV .Q24H [facility] Rx#:[id number] Oral 120 Other: Voiding Method Toilet Toilet # Voids 1 0 - Labs CBC & Chem 7: 07/18/24 01:47 07/17/24 19:39 Labs: Abnormal Lab Results - Last 24 Hours (Table) 07/18/24 Range/Units 07:30 APTT 42.0 H (22.0-30.0) sec
[2024-07-19] MEDS: DEXTROSE 5% IN WATER 100 ML with AMIODARONE 150 MG IV ONE (09:38)
[2024-07-19] MEDS: AMIODARONE 360 MG in DEXTROSE 5% IN WATER 200 ML IV ONE (10:25)
[2024-07-19] MEDS: AMIODARONE 450 MG in DEXTROSE 5% IN WATER 250 ML IV SCH (16:34)
[2024-07-19] MEDS: ATORVASTATIN 20 MG TAB PO SCH (21:26)
--- NOTE | 2024-07-20 05:26 | HP ---
HISTORY AND PHYSICAL CHIEF COMPLAINT: Shortness of breath. HISTORY OF PRESENT ILLNESS: This is the first known admission for this 83-year-old otherwise healthy female. She came into the emergency room with shortness of breath and was found to have atrial fibrillation with a rapid ventricular rate and bilateral pleural effusions. She has generally been healthy and active all of her life. She does have a history of hypertension. Apparently, she has been having some shortness of breath for about a week and occasionally, we noticed her heart was beating fast. She had no chest pain. She was helping her do something and bending over when she became acutely short of breath. They went inside and checked her blood pressure, and it was very high. She came to the emergency room where she was evaluated. She has had no chest pain. She does not have a family history of heart disease. She has never had rheumatic fever, and she has never had a murmur that anyone has been aware of. She has had no fever, chills, etc. She and her both had upper respiratory infections recently but were improving. REVIEW OF SYSTEMS: Otherwise unremarkable. Past medical history, family history, personal and social histories are also otherwise unremarkable or noncontributory. In the emergency room, she had a BNP of 9970. PHYSICAL EXAMINATION: VITAL SIGNS: Blood pressure is 181/106 with a pulse of 133, respirations of 36, and she is afebrile. GENERAL: She appeared to be slender and short of breath. SKIN: Color was normal. HEAD, EYES, EARS, NOSE, MOUTH, AND THROAT: Normal. CHEST: Demonstrated decreased breath sounds at the bases with scattered rales. CARDIAC: Demonstrates atrial fibrillation without auscultable S3 or S4 or murmur. ABDOMEN: Soft and nontender. EXTREMITIES: Normal. NEUROLOGICAL: She is intact. IMPRESSION: She is admitted to the hospital with diagnoses of: 1. New-onset atrial fibrillation with rapid ventricular response. 2. Congestive heart failure. 3. Bilateral pleural effusions. 4. Hypertension. PLAN: 1. Bedrest. 2. IV fluids. 3. Telemetry. 4. Nasal O2. 5. Serial EKGs and enzymes. 6. Echocardiogram. 7. Cardiology consult. 8. IV calcium channel ashish. MMODL / IJN: [id number] /
--- NOTE | 2024-07-20 05:26 | PN ---
PROGRESS NOTE DATE OF SERVICE: 07/18/2024 CHIEF COMPLAINT: Congestive heart failure, atrial fibrillation, and rapid ventricular response. HISTORY OF PRESENT ILLNESS: This lady is doing fairly well. She is not having chest pain, but she is still slightly short of breath. She has had an echocardiogram which demonstrates an ejection fraction of 45% and apparent severe mitral and tricuspid insufficiencies. She also has secondary pulmonary hypertension. REVIEW OF SYSTEMS: She denies any shortness of breath, abdominal pain, etc. PHYSICAL EXAMINATION: CHEST: Demonstrates decreased breath sounds at the bases. CARDIAC: Reveals atrial fibrillation. ABDOMEN: Soft and nontender. She is still short of breath, and she is still in atrial fibrillation. IMPRESSION: 1. Atrial fibrillation. 2. Congestive heart failure. 3. Bilateral pleural effusions. 4. Reduced ejection fraction with mitral and tricuspid insufficiency and pulmonary hypertension. PLAN: Keep patient at bedrest this weekend. She will require further cardiac management with an effort to convert her to sinus rhythm. This does not sound like a situation where the coronary arteries might be involved, but a cardiac cath might be necessary. She had 2 brothers who have of atherosclerotic issues and an older brother who has had some problems as well. MMODL / IJN: [id number] /
--- NOTE | 2024-07-20 05:26 | PN ---
PROGRESS NOTE DATE OF SERVICE: 07/19/2024 CHIEF COMPLAINT: Acute congestive heart failure with atrial fibrillation and RVR. HISTORY OF PRESENT ILLNESS: This lady is doing better. She is less short of breath. She is still in atrial fibrillation, but rate has dropped to around 90 or 100. PHYSICAL EXAM: CHEST: More clear. There are fewer rales. CARDIAC: Unchanged with atrial fibrillation. ABDOMEN: Soft, nontender. IMPRESSION: 1. Acute congestive heart failure. 2. New onset atrial fibrillation with RVR. 3. Pleural effusions. 4. Mitral and tricuspid insufficiency. 5. Pulmonary hypertension. PLAN: Continue with diuresis and wait for further cardiac evaluation from Cardiology. MMODL / IJN: [id number] /
[2024-07-20] MEDS: AMIODARONE 200 MG TAB PO SCH (09:08)
[2024-07-20] MEDS: METOPROLOL TARTRATE 50 MG TAB PO SCH (09:08)
--- NOTE | 2024-07-20 13:03 | P.PN ---
Subjective HISTORY OF PRESENT ILLNESS: HPI: This is a 83-year-old lady with a known history of hypertension and hypercholesterolemia currently takes simvastatin and Norvasc. She sees Dr. 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 She came in with increasing shortness of breath of 1 week duration without prior history of any coronary disease, COPD. She has noted some fluttering feeling in the chest for about a week and felt that her stamina has decreased. She was found to be in atrial fibrillation with a moderately rapid ventricular rate has been placed on Cardizem drip with some modest improvement in rate. She is resting comfortably denies any chest pain at rest but does have some shortness of breath with activity. 07/19 Patient seen and examined. Patient remains in atrial fibrillation but rate is much better controlled. Yesterday, she was started on Eliquis as well as Lopressor 50 mg twice daily and Cardizem drip was discontinued. Echocardiogram reveals EF of 45%, severe mitral regurgitation, moderate pulmonary hypertension with RVSP 50 mmHg, severe tricuspid regurgitation, aortic valve sclerosis. 07/20/2024 Patient examined this morning at bedside. Patient complains of feeling tired. She also reports having a panic attack last night. She currently denies any chest pain or pressure. Denies any shortness of breath. Denies dizziness or lightheadedness. Telemetry reveals atrial fibrillation with heart rate around 110. PHYSICAL EXAM: VITAL SIGNS: Reviewed. GENERAL: Well-developed in no acute distress. NECK: Supple. No JVD or thyromegaly LUNGS: Respirations even and unlabored. Lungs essentially clear to auscultation bilaterally. HEART: Mildly tachycardic. Irregular rate and rhythm. S1 and S2 heard. EXTREMITIES: Normal range of motion. No clubbing or cyanosis. Peripheral pulses intact. No lower extremity edema ASSESSMENT: New onset atrial fibrillation with RVR Hypertension Hyperlipidemia PLAN: Discontinue IV amiodarone. Begin oral amiodarone 400 mg twice a day Increase metoprolol tartrate to 100 mg twice daily Continue additional cardiac medications including Eliquis and Lipitor Continue telemetry monitoring Further recommendations pending patient course Nurse practitioner note has been reviewed by physician. Signing provider agrees with the documented findings, assessment, and plan of care documented by [employer] WORKER as a scribe. Objective - Vital Signs Vital signs: Vital Signs Temp 97.0 F L 07/20/24 08:00 Pulse 84 07/20/24 12:00 Resp 16 07/20/24 12:00 BP 118/73 07/20/24 12:00 Pulse Ox 96 07/20/24 12:00 FiO2 Intake & Output 07/19/24 07/20/24 07/20/24 18:59 06:59 18:59 Intake Total 236 216.115 120 Balance 236 216.115 120 Weight 63 kg Intake: Intake, IV Titration 216.115 Amount Amiodarone 450 mg In 216.115 Dextrose 5% in Water 250 ml @ 0.5 MG/MIN 16.667 mls/hr IV .Q15H FOR[facility], 1928–1983 Rx#: [id number] Oral 236 120 Other: Voiding Method Toilet Toilet Toilet # Voids 2 0 - Labs CBC & Chem 7: 07/18/24 01:47 07/17/24 19:39
[2024-07-20 16:35] LABS: Basophils # (A) 0.03 10*3/uL (0.00-0.10); Basophils % (A) 0.3 %; Eosinophils # (A) 0.12 10*3/uL (0.04-0.35); Eosinophils % (A) 1.1 %; HCT 43.7 % (37.2-46.3); MCH 31.3 pg (27.0-32.0); MCV 97.5 fL (80.0-97.0); Mean Platelet Volume 9.8 fL (9.5-12.2); Monocytes # (A) 0.88 10*3/uL (0.20-1.00); Monocytes % (A) 8.3 %; Neutrophils # (A) 7.71 10*3/uL (1.80-7.70); Platelet Count 361 10*3/uL (140-440); RBC 4.48 10*6/uL (4.10-5.20); RDW 12.9 % (11.5-14.5); WBC 10.57 10*3/uL (4.50-10.00)
--- NOTE | 2024-07-20 16:38 | XR ---
EXAMINATION TYPE: XR chest 1V portable DATE OF EXAM: 07/20/2024 3:50 PM COMPARISON: 07/17/2024 CLINICAL INDICATION: Female, 83 years old with history of CHF. Progress, , FINDINGS: Heart mildly enlarged. Low lung volumes. Increased interstitial densities. Ongoing small bilateral pl eural effusions. IMPRESSION: Diminished lung volumes and slight worsening in CHF now with mild interstitial edema. Ongoing small b ilateral pleural effusions with adjacent atelectasis and/or consolidation. [facility], , 07/20/2024 4:35 PM
[2024-07-20 17:22] LABS: ALT 32 U/L (4-34); AST 30 U/L (14-36); African American GFR (CKD) 70 (>60 ml/min/1.73 sqM); Albumin 4.1 g/dL (3.5-5.0); Alkaline Phosphatase 85 U/L (38-126); Anion Gap 13 mmol/L; Blood Urea Nitrogen 28 mg/dL (7-17); Carbon Dioxide 20 mmol/L (22-30); Chloride 104 mmol/L (98-107); Glucose 110 mg/dL (74-99); Non-African American GFR(CKD) 61 (>60 ml/min/1.73 sqM); Potassium 4.1 mmol/L (3.5-5.1); Sodium 137 mmol/L (137-145); Total Protein 6.9 g/dL (6.3-8.2)
[2024-07-21 03:10] LABS: Chol/HDL Ratio 2.67 Ratio; LDL Cholesterol,Calculated 59.1 mg/dL (0.0-131.0)
[2024-07-21] MEDS ORDERED: MIDAZOLAM 2 MG/2 ML VIAL IV PRN (12:03)
[2024-07-21] MEDS ORDERED: fentaNYL (PF) 50 MCG/ML 5 ML AMP IVP PRN (12:03)
--- NOTE | 2024-07-21 12:45 | P.PN ---
Subjective HISTORY OF PRESENT ILLNESS: HPI: This is a 83-year-old lady with a known history of hypertension and hypercholesterolemia currently takes simvastatin and Norvasc. She sees Dr. 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 She came in with increasing shortness of breath of 1 week duration without prior history of any coronary disease, COPD. She has noted some fluttering feeling in the chest for about a week and felt that her stamina has decreased. She was found to be in atrial fibrillation with a moderately rapid ventricular rate has been placed on Cardizem drip with some modest improvement in rate. She is resting comfortably denies any chest pain at rest but does have some shortness of breath with activity. 07/19 Patient seen and examined. Patient remains in atrial fibrillation but rate is much better controlled. Yesterday, she was started on Eliquis as well as Lopressor 50 mg twice daily and Cardizem drip was discontinued. Echocardiogram reveals EF of 45%, severe mitral regurgitation, moderate pulmonary hypertension with RVSP 50 mmHg, severe tricuspid regurgitation, aortic valve sclerosis. 07/20/2024 Patient examined this morning at bedside. Patient complains of feeling tired. She also reports having a panic attack last night. She currently denies any chest pain or pressure. Denies any shortness of breath. Denies dizziness or lightheadedness. Telemetry reveals atrial fibrillation with heart rate around 110. 07/21/2024 Patient examined this morning the bedside. Patient currently denies chest pain or pressure. She denies shortness of breath. She remains in atrial fibrillation with a heart rate in the 80s. She complains of fatigue with exertion. PHYSICAL EXAM: VITAL SIGNS: Reviewed. GENERAL: Well-developed in no acute distress. NECK: Supple. No JVD or thyromegaly LUNGS: Respirations even and unlabored. Lungs essentially clear to auscultation bilaterally. HEART: Irregular rate and rhythm. S1 and S2 heard. Systolic murmur noted. EXTREMITIES: Normal range of motion. No clubbing or cyanosis. Peripheral pulses intact. No lower extremity edema ASSESSMENT: New onset atrial fibrillation with RVR Severe mitral regurgitation Severe tricuspid regurgitation Mild aortic stenosis Cardiomyopathy, ischemic versus nonischemic, EF 45% Moderate pulmonary hypertension Hypertension Hyperlipidemia PLAN: Continue current cardiac medications including oral amiodarone, Eliquis, Lipitor, and metoprolol N.p.o. at midnight Patient to undergo SAEID tomorrow to assess severe MR/TR with Dr. Singer Continue telemetry monitoring Further recommendations pending patient course Nurse practitioner note has been reviewed by physician. Signing provider agrees with the documented findings, assessment, and plan of care documented by EXTRUDING PRESS ADJUSTER as a scribe. Objective - Vital Signs Vital signs: Vital Signs Temp 97.8 F 07/21/24 08:26 Pulse 77 07/21/24 11:18 Resp 18 07/21/24 11:18 BP 136/75 07/21/24 11:18 Pulse Ox 98 07/21/24 11:18 FiO2 Intake & Output 07/20/24 07/21/24 07/21/24 18:59 06:59 18:59 Intake Total 240 200 250 Balance 240 200 250 Weight 63.4 kg Intake: IV 10 Invasive Line 2 10 Oral 240 200 240 Other: Voiding Method Toilet Toilet Toilet # Voids 1 - Labs CBC & Chem 7: 07/20/24 16:18 07/20/24 16:18 Labs: Abnormal Lab Results - Last 24 Hours (Table) 07/20/24 07/20/24 Range/Units 16:18 16:18 WBC 10.57 H (4.50-10.00) 10*3/uL MCV 97.5 H (80.0-97.0) fL Neutrophils # 7.71 H (1.80-7.70) 10*3/uL Carbon Dioxide 20 L (22-30) mmol/L BUN 28 H (7-17) mg/dL Glucose 110 H (74-99) mg/dL
--- NOTE | 2024-07-21 14:13 | PN ---
PROGRESS NOTE CHIEF COMPLAINT: 1. Congestive heart failure with reduced ejection fraction. 2. Bilateral pleural effusions. 3. Atrial fibrillation. HISTORY OF PRESENT ILLNESS: This lady is doing fairly well and her breathing is improved. She has had no chest pain. She is still in AFib, however. We await to see if Cardiology has any further management recommendations. PHYSICAL EXAMINATION: CHEST: Quite clear. CARDIAC: Reveals atrial fibrillation with a slow rate in the 80s. ABDOMEN: Soft, nontender. IMPRESSION: 1. New-onset atrial fibrillation with RVR. 2. Congestive heart failure with reduced ejection fraction. 3. Bilateral pleural effusions. PLAN: Progress activity and wait for further recommendations from Cardiology. Cardiac catheterization might be considered. MMODL / IJN: [id number] /
--- NOTE | 2024-07-22 01:46 | PN ---
PROGRESS NOTE CHIEF COMPLAINT: Atrial fibrillation and shortness of breath. HISTORY OF PRESENT ILLNESS: This lady is doing fairly well, but she is still a little bit short of breath. She is still in atrial fibrillation. Her x-ray suggests that her congestive heart failure is a little bit worse. Her GFR is 56. PHYSICAL EXAMINATION: CARDIAC: She is in atrial fibrillation. CHEST: Demonstrates rales at least in the posterior chest on the left. ABDOMEN: Soft, nontender. IMPRESSION: 1. New onset atrial fibrillation with rapid ventricular response. 2. Congestive heart failure. 3. Bilateral pleural effusions. 4. Stage 3A chronic kidney disease. PLAN: Await further guidance from Cardiology at this time. MMODL / IJN: [id number] /
[2024-07-22] MEDS: BENZOCAINE SPRAY 1 EACH MUCOUS MEM ONE (11:29)
[2024-07-22] MEDS: MIDAZOLAM 2 MG/2 ML VIAL IVP ONE (11:30)
[2024-07-22] MEDS: fentaNYL (PF) 50 MCG/ML 2 ML AMP IVP ONE (11:30)
[2024-07-22] MEDS: FLUMAZENIL 0.1 MG/ML 5 ML VIAL IVP STA (11:37)
[2024-07-22] MEDS: FUROSEMIDE 10 MG/ML 4 ML VIAL IV STA (11:37)
[2024-07-22] MEDS: IPRATROPIUM-ALBUTEROL 3 ML NEB INHALATION STA (11:46)
[2024-07-22] MEDS: SODIUM CHLORIDE 0.9% 500 ML 500 ML IV ONE (12:19)
--- NOTE | 2024-07-22 12:23 | XR ---
EXAMINATION TYPE: XR chest 1V DATE OF EXAM: 07/22/2024 12:16 PM COMPARISON: 07/20/2024 CLINICAL INDICATION: Female, 83 years old with history of SOB,wheezing,crackles, TECHNIQUE: XR chest 1V views of the chest are obtained. FINDINGS: Demonstrated are scattered senescent parenchymal change. There is no evidence for focal infiltrate. Cardiomegaly with pleural effusions and pulmonary venous congestion. Scattered interstitial edema. Hilar and mediastinal structures are within normal limits. Degenerative changes are seen of the dorsal spine. IMPRESSION: 1. Findings compatible with stable congestive failure. [facility], , 07/22/2024 12:20 PM
--- NOTE | 2024-07-22 13:38 | US ---
EXAMINATION TYPE: US chest DATE OF EXAM: 07/22/2024 COMPARISON: XRAY: 07/22/24 CLINICAL INDICATION: Female, 83 years old with history of Pleural effusions; Plueral effusions TECHNIQUE: Grayscale imaging of the chest. Targeted ultrasound of the posterior lower Bilateral FINDINGS: EXAM MEASUREMENTS: Right Pleural Effusion pocket size: 12.1 cm Right skin surface to fluid distance: 3.6 cm Left Pleural Effusion pocket size: 9.5 cm Left skin surface to fluid distance: 1.6 cm Right side marked for possible thoracentesis outside the dept. Left side NOT marked for possible thoracentesis outside the dept due to persistent lung tissue close to skin. Pulmonologists are able to review the images in the patient?s EMR. IMPRESSIONS: As above [facility], , 07/22/2024 1:35 PM
--- NOTE | 2024-07-22 13:56 | P.CNPUL ---
History of Present Illness Consult date: 07/22/24 Requesting physician: Mia Siddiqui Reason for consult: dyspnea, pleural effusion, abnormal CXR/CT Chief complaint: Shortness of breath History of present illness: This is a very pleasant 83-year-old female patient with a known history of hypertension, hyperlipidemia, colitis, lifelong non-smoker who presented here to the emergency room back on 07/17/2024 with complaints of increasing shortness of breath and dyspnea on exertion. Chest x-ray revealed evidence of pulmonary venous congestion with basilar effusions and probable complete compressive atelectasis. Borderline cardiomegaly. EKG revealed atrial fibrillation with a rapid ventricular response. Echocardiogram revealed mildly impaired left ventricular systolic function with an ejection fraction of 45%. There is severe mitral regurgitation. Mild aortic stenosis. Moderate pulmonary hypertension. White count 10.5. Hemoglobin 14.0. Platelets 361. Sodium 137. Potassium 4.1. Bicarb 20. BUN 28. Creatinine 0.89. Glucose 110. proBNP 1970. She is seen today in consultation on the selective care unit. She is currently sitting up in bed. Awake and alert in no acute distress. She states she is breathing a bit easier since she arrived here to the emergency room. She has been receiving diuretics. She is diuresing well. No accurate LUIS recorded. She is maintaining good O2 saturations in the high 90s on 2 L/min per nasal cannula. She has been afebrile. Hemodynamically stable. Review of Systems REVIEW OF SYSTEMS: CONSTITUTIONAL: Denies any recent significant weight loss or weight gain. EYES: Denies change in vision. EARS, NOSE, MOUTH, THROAT: Denies headaches, denies sore throat. CARDIOVASCULAR: Denies chest pain, palpitations or syncopal episodes. RESPIRATORY: Positive for shortness of breath, no cough, congestion or hemoptysis. GASTROINTESTINAL: Denies change in appetite, denies abdominal pain GENITOURINARY: Denies hematuria, denies infections. MUSKULOSKELETAL: Denies pain, denies swelling. INTEGUMENTARY: Denies rash, denies eczema. NEUROLOGICAL: Denies recent memory loss, no recent seizure activity. PSYCHIATRIC: Denies anxiety, denies depression. HEMATOLOGIC/LYMPHATIC: Denies anemia, denies enlarged lymph nodes. Past Medical History Additional Past Medical History / Comment(s): Colitis History of Any Multi-Drug Resistant Organisms: None Reported Past Surgical History: No Surgical Hx Reported Past Anesthesia/Blood Transfusion Reactions: No Reported Reaction Past Psychological History: No Psychological Hx Reported Smoking Status: Never smoker Past Alcohol Use History: Rare Past Drug Use History: None Reported Medications and Allergies Home Medications Medication Instructions Recorded Confirmed Type Famotidine [Pepcid] 20 mg PO HS 07/17/24 07/17/24 History Lansoprazole [Prevacid] 30 mg PO DAILY 07/17/24 07/17/24 History Simvastatin [Zocor] 10 mg PO HS 07/17/24 07/17/24 History Zolpidem [Ambien] 15 mg PO HS 07/17/24 07/17/24 History amLODIPine [Norvasc] 5 mg PO DAILY 07/17/24 07/17/24 History Allergies Allergy/AdvReac Type Severity Reaction Status Date / Time Sulfa (Sulfonamide Allergy Unknown Verified 07/17/24 19:24 Antibiotics) Physical Exam Vitals: Vital Signs Temp Pulse Pulse Resp BP Pulse Ox 07/22/24 12:44 71 18 144/79 97 07/22/24 11:57 72 07/22/24 11:49 70 07/22/24 10:44 69 18 169/80 97 07/22/24 09:00 97 F L 79 18 154/85 95 07/22/24 04:00 97.7 F 68 16 122/75 98 07/21/24 23:27 75 16 135/73 97 07/21/24 20:00 98.1 F 82 16 124/72 96 07/21/24 17:40 97.9 F 72 16 135/80 98 Intake and Output 07/21/24 07/22/24 07/22/24 22:59 06:59 14:59 Intake Total 250 10 10 Balance 250 10 10 Intake: IV 10 10 10 Invasive Line 2 10 10 10 Oral 240 Other: Voiding Method Toilet Toilet Toilet # Voids 1 1 Weight 63 kg GENERAL EXAM: Alert, active, pleasant 83-year-old female, on 2 L nasal cannula, comfortable in no apparent distress. HEAD: Normocephalic. EYES: Normal reaction of pupils, equal size. NOSE: Clear with pink turbinates. THROAT: No erythema or exudates. NECK: No masses, no JVD. CHEST: No chest wall deformity. LUNGS: Equal air entry with faint crackles in the bilateral bases. CVS: S1 and S2 normal with no audible murmur, regular rhythm. ABDOMEN: No hepatosplenomegaly, normal bowel sounds, no guarding or rigidity. SPINE: No scoliosis or deformity SKIN: No rashes CENTRAL NERVOUS SYSTEM: No focal deficits, tone is normal in all 4 extremities. EXTREMITIES: There is no peripheral edema. No clubbing, no cyanosis. Peripheral pulses are intact. Results - Laboratory Findings CBC and BMP: 07/20/24 16:18 07/20/24 16:18 PT/INR, D-dimer PT 11.2 sec (10.0-12.5) 07/18/24 01:47 INR 1.0 (<1.2) 07/18/24 01:47 Abnormal lab findings: Abnormal Labs 07/17/24 07/17/24 07/17/24 19:39 19:39 19:39 WBC RBC MCV MCHC MPV 9.3 L Neutrophils # APTT 21.9 L Chloride 108 H Carbon Dioxide BUN 23 H Glucose 111 H 07/18/24 07/18/24 07/20/24 01:47 07:30 16:18 WBC 10.57 H RBC 4.04 L MCV 97.5 H MCHC 31.4 L MPV 9.3 L Neutrophils # 7.71 H APTT 42.0 H Chloride Carbon Dioxide BUN Glucose 07/20/24 16:18 WBC RBC MCV MCHC MPV Neutrophils # APTT Chloride Carbon Dioxide 20 L BUN 28 H Glucose 110 H - Diagnostic Findings Chest x-ray: image reviewed Assessment and Plan Assessment: Acute hypoxic respiratory failure secondary to an acute exacerbation of mild systolic congestive heart failure, left ventricular ejection fraction 45% Atrial fibrillation with rapid ventricular response, improved Severe mitral regurgitation Severe tricuspid regurgitation Mild aortic stenosis Moderate pulmonary hypertension History of hypertension Hyperlipidemia Lifelong non-smoker Plan: The patient was seen and evaluated Chest x-ray, labs and medications reviewed SAEID performed today, results pending Continue diuretics per cardiology Continue amiodarone, metoprolol Anticoagulated with Eliquis Obtain an ultrasound of the chest Patient is improving and less short of breath Titrate down/off the FiO2 as tolerated We will continue to follow and make further recommendations based on her clinical status I have personally seen and examined the patient, performed the documentation and the assessment and plan as written. Number of minutes spent on the visit: 20 Dictation was produced using [employer] software. Please excuse any grammatical, word or spelling errors. Time with Patient: Greater than 30
--- NOTE | 2024-07-23 03:43 | PN ---
PROGRESS NOTE DATE OF SERVICE: 07/22/2024 CHIEF COMPLAINT: Congestive heart failure. HISTORY OF PRESENT ILLNESS: This lady is doing fairly well. She is going down today for a SAEID to look at her valves where her echo suggests mitral insufficiency as well as tricuspid insufficiency. She is having no pain. PHYSICAL EXAMINATION: CHEST: Fairly clear. There are scattered rales. CARDIAC: Normal. IMPRESSION: 1. Acute on chronic congestive heart failure. 2. Bilateral pleural effusions. 3. Mitral and tricuspid insufficiency. 4. Pulmonary hypertension. PLAN: Await results of SAEID and progress activity. MMODL / IJN: [id number] /
--- NOTE | 2024-07-23 04:04 | ECHOT ---
TRANSESOPHAGEAL ECHOCARDIOGRAM INDICATION: Severe mitral regurgitation. PROCEDURE NOTE: After obtaining informed consent, transesophageal echocardiogram was performed in left lateral position using an Omniplane probe. Local and IV sedation were obtained using 1 mg of Versed, and 50 mcg of fentanyl. The patient dropped her O2 sats into the 80s during the procedure and stopped it and we reversed the versed. Her O2 sats picked up immediately. FINDINGS: 1. Mitral valve: Mitral valve appears anatomically normal. There is severe central mitral regurgitation noted. Mitral regurgitation is related to mitral annular dilatation. There is severe left atrial enlargement. Right atrium, right ventricle seen within normal limits. 2. Left ventricle has normal size and systolic function. Aortic valve is free of stenosis or regurgitation. There is moderate tricuspid regurgitation noted. CONCLUSIONS: 1. Normal LV systolic function. 2. Severe mitral regurgitation. PLAN: The patient will need a cardiac catheterization and consideration for mitral valve surgery when she is more stable. MMODL / IJN: [id number] /
[2024-07-23] MEDS: FUROSEMIDE 10 MG/ML 4 ML VIAL IV SCH (09:45)
--- NOTE | 2024-07-23 10:38 | XR ---
EXAMINATION TYPE: XR chest 1V portable DATE OF EXAM: 07/23/2024 10:34 AM COMPARISON: 07/22/2024 CLINICAL INDICATION: Female, 83 years old with history of Post right thoracentesis, TECHNIQUE: XR chest 1V portable views of the chest are obtained. FINDINGS: Demonstrated are scattered senescent parenchymal change. Status post thoracentesis without evidence for pneumothorax. Persistent small bilateral pleural effusions. Interstitial prominence seen bilatera lly. There is no evidence for focal infiltrate. The heart is stable. Hilar and mediastinal structures are within normal limits. Degenerative changes are seen of the dorsal spine. IMPRESSION: 1. Status post thoracentesis without evidence for pneumothorax. Persistent small bilateral pleural e ffusions. Interstitial prominence seen bilaterally. [facility], , 07/23/2024 10:36 AM
[2024-07-23 11:44] LABS: Total Protein 6.6 g/dL (6.3-8.2)
--- NOTE | 2024-07-23 12:57 | P.PN ---
Subjective Progress Note Date: 07/23/24 This is a very pleasant 83-year-old female patient with a known history of hypertension, hyperlipidemia, colitis, lifelong non-smoker who presented here to the emergency room back on 07/17/2024 with complaints of increasing shortness of breath and dyspnea on exertion. Chest x-ray revealed evidence of pulmonary venous congestion with basilar effusions and probable complete compressive atelectasis. Borderline cardiomegaly. EKG revealed atrial fibrillation with a rapid ventricular response. Echocardiogram revealed mildly impaired left ventricular systolic function with an ejection fraction of 45%. There is severe mitral regurgitation. Mild aortic stenosis. Moderate pulmonary hypertension. White count 10.5. Hemoglobin 14.0. Platelets 361. Sodium 137. Potassium 4.1. Bicarb 20. BUN 28. Creatinine 0.89. Glucose 110. proBNP 1970. She is seen today in consultation on the selective care unit. She is currently sitting up in bed. Awake and alert in no acute distress. She states she is breathing a bit easier since she arrived here to the emergency room. She has been receiving diuretics. She is diuresing well. No accurate LUIS recorded. She is maintaining good O2 saturations in the high 90s on 2 L/min per nasal cannula. She has been afebrile. Hemodynamically stable. The patient is seen today July 23, 2024 in follow-up on the regular medical floor. Currently sitting up at the bedside. Awake and alert in no acute distress. Maintaining O2 saturations in the mid 90s on room air oxygen. She has been afebrile. Hemodynamically stable. Ultrasound of the chest did reveal a right sided pleural effusion measuring 12.1 cm and a left-sided pleural effusion measuring 9.5 cm however the left side did have lung tissue close to the skin. She did undergo a right sided thoracentesis today with Dr. Mullins. 1 L of cloudy yellow fluid was returned. Cytology, fluid analysis and cultures pending. Follow-up chest x-ray revealed no evidence of pneumothorax. LDH 211. Total protein 6.6. She remains on Lasix 40 mg IV daily. She is diuresing well. No accurate intake or output. Objective - Vital Signs Vital signs: Vital Signs Temp 98.0 F 07/23/24 08:00 Pulse 70 07/23/24 08:00 Resp 18 07/23/24 08:00 BP 148/70 07/23/24 08:00 Pulse Ox 96 07/23/24 08:42 FiO2 21 07/23/24 08:42 Intake & Output 07/22/24 07/23/24 07/23/24 18:59 06:59 18:59 Intake Total 610 20 190 Balance 610 20 190 Weight 63.1 kg Intake: IV 130 20 10 Invasive Line 2 20 Invasive Line 3 10 20 10 Oral 480 180 Other: Voiding Method Toilet Toilet Toilet # Voids 1 # Bowel Movements 1 - Exam GENERAL EXAM: Alert, 83-year-old female, on room air oxygen, comfortable in no apparent distress. HEAD: Normocephalic. EYES: Normal reaction of pupils, equal size. NOSE: Clear with pink turbinates. THROAT: No erythema or exudates. NECK: No masses, no JVD. CHEST: No chest wall deformity. LUNGS: Equal air entry with crackles in the bilateral bases. CVS: S1 and S2 normal with no audible murmur, regular rhythm. ABDOMEN: No hepatosplenomegaly, normal bowel sounds, no guarding or rigidity. SPINE: No scoliosis or deformity SKIN: No rashes CENTRAL NERVOUS SYSTEM: No focal deficits, tone is normal in all 4 extremities. EXTREMITIES: There is no peripheral edema. No clubbing, no cyanosis. Peripheral pulses are intact. - Labs CBC & Chem 7: 07/20/24 16:18 07/20/24 16:18 Assessment and Plan Assessment: Acute hypoxic respiratory failure secondary to an acute exacerbation of mild systolic congestive heart failure, left ventricular ejection fraction 45% and bilateral pleural effusions Bilateral pleural effusions, status post right sided thoracentesis today July 23, 2024 with 1 L of fluid removed. Cytology, fluid analysis and cultures pending. No plans for thoracentesis on the left side due to lung tissue being near the pleura. Atrial fibrillation with rapid ventricular response, improved Severe mitral regurgitation Severe tricuspid regurgitation Mild aortic stenosis Moderate pulmonary hypertension History of hypertension Hyperlipidemia Lifelong non-smoker Plan: The patient was seen and evaluated Chest x-ray, labs and medications reviewed Right sided thoracentesis performed 1 L of fluid removed Cytology, fluid analysis and cultures pending No plans for left-sided thoracentesis Lung tissue is to near the pleura Stable and on room air oxygen SAEID results reviewed Continue diuretics per cardiology Resume Eliquis per cardiology Considering a cardiac catheterization We will continue to follow I have personally seen and examined the patient, performed the documentation and the assessment and plan as written. Number of minutes spent on the visit: 10 Dictation was produced using [employer] dictation software. Please excuse any grammatical, word or spelling errors.
--- NOTE | 2024-07-23 13:31 | P.PN ---
Subjective HISTORY OF PRESENT ILLNESS: HPI: This is a 83-year-old lady with a known history of hypertension and hypercholesterolemia currently takes simvastatin and Norvasc. She sees Dr. Hinojosa as her primary care physician does not see a employment case manager. She came in with increasing shortness of breath of 1 week duration without prior history of any coronary disease, COPD. She has noted some fluttering feeling in the chest for about a week and felt that her stamina has decreased. She was found to be in atrial fibrillation with a moderately rapid ventricular rate has been placed on Cardizem drip with some modest improvement in rate. She is resting comfortably denies any chest pain at rest but does have some shortness of breath with activity. 07/19 Patient seen and examined. Patient remains in atrial fibrillation but rate is much better controlled. Yesterday, she was started on Eliquis as well as Lopressor 50 mg twice daily and Cardizem drip was discontinued. Echocardiogram reveals EF of 45%, severe mitral regurgitation, moderate pulmonary hypertension with RVSP 50 mmHg, severe tricuspid regurgitation, aortic valve sclerosis. 07/20/2024 Patient examined this morning at bedside. Patient complains of feeling tired. She also reports having a panic attack last night. She currently denies any chest pain or pressure. Denies any shortness of breath. Denies dizziness or lightheadedness. Telemetry reveals atrial fibrillation with heart rate around 110. 07/21/2024 Patient examined this morning the bedside. Patient currently denies chest pain or pressure. She denies shortness of breath. She remains in atrial fibrillation with a heart rate in the 80s. She complains of fatigue with exertion. 07/23/2024 Patient underwent SAEID yesterday revealing severe mitral regurgitation and normal LV systolic function. Patient examined this morning at the bedside. She reports mild shortness of breath. Denies any chest pain or pressure. Patient underwent thoracentesis today with pulmonary medicine with removal of 1000 cc from the right pleural space. Eliquis remains on hold. PHYSICAL EXAM: VITAL SIGNS: Reviewed. GENERAL: Well-developed in no acute distress. NECK: Supple. No JVD or thyromegaly LUNGS: Respirations even and unlabored. Lungs essentially clear to auscultation bilaterally. HEART: Irregular rate and rhythm. S1 and S2 heard. Systolic murmur noted. EXTREMITIES: Normal range of motion. No clubbing or cyanosis. Peripheral pulses intact. No lower extremity edema ASSESSMENT: New onset atrial fibrillation with RVR Severe mitral regurgitation Moderate tricuspid regurgitation Cardiomyopathy, ischemic versus nonischemic, EF 45% Moderate pulmonary hypertension Hypertension Hyperlipidemia Pleural effusion, status post right thoracentesis with removal of 1 L PLAN: Continue to hold Eliquis Continue amiodarone, Lipitor, metoprolol Add IV Lasix 40 mg daily N.p.o. at midnight Patient to undergo cardiac catheterization tomorrow with Dr. Singer Further recommendations pending patient course Nurse practitioner note has been reviewed by physician. Signing provider agrees with the documented findings, assessment, and plan of care documented by HOSTESS as a scribe. Objective - Vital Signs Vital signs: Vital Signs Temp 98.0 F 07/23/24 08:00 Pulse 70 07/23/24 08:00 Resp 18 07/23/24 08:00 BP 148/70 07/23/24 08:00 Pulse Ox 96 07/23/24 08:42 FiO2 21 07/23/24 08:42 Intake & Output 07/22/24 07/23/24 07/23/24 18:59 06:59 18:59 Intake Total 610 20 190 Balance 610 20 190 Weight 63.1 kg Intake: IV 130 20 10 Invasive Line 2 20 Invasive Line 3 10 20 10 Oral 480 180 Other: Voiding Method Toilet Toilet Toilet # Voids 1 # Bowel Movements 1 - Labs CBC & Chem 7: 07/20/24 16:18 07/20/24 16:18
[2024-07-23] MEDS ORDERED: ALPRAZolam 0.5 MG TAB PO PRN (13:33)
[2024-07-23] MEDS ORDERED: NITROGLYCERIN SL TABS 0.4 MG TAB SUBLINGUAL PRN (13:33)
[2024-07-23] MEDS ORDERED: ALPRAZolam 0.25 MG TAB PO PRN (13:33)
[2024-07-23 20:25] LABS: Appearance,BF Slightly Hazy (Clear)
[2024-07-23 22:42] LABS: Glucose, BF Source Pleural Fluid; Glucose, Body Fluid 109 mg/dL; LDH, Body Fluid Source Pleural Fluid; T. Protein, Body Fluid Source Pleural Fluid; Total Protein, Body Fluid 1810 mg/dL
[2024-07-24] MEDS: SODIUM CHLORIDE 0.9% 1,000 ML in EMPTY BAG 1 BAG IV SCH (00:15)
[2024-07-24] MEDS: ASPIRIN 325 MG TAB PO ONE (05:41)
[2024-07-24] MEDS: ATORVASTATIN 80 MG TAB PO ONE (05:41)
[2024-07-24] MEDS ORDERED: HEPARIN SODIUM,PORCINE 10,000 UNIT in SODIUM CHLORIDE 0.9% 1,000 ML IRRIGATION PRN (07:00)
[2024-07-24] MEDS ORDERED: HEPARIN SODIUM,PORCINE (1 ML) 2,500 UNIT in SODIUM CHLORIDE 0.9% 250 ML IRRIGATION PRN (07:00)
[2024-07-24 07:17] LABS: African American GFR (CKD) 60 (>60 ml/min/1.73 sqM); Anion Gap 9 mmol/L; Blood Urea Nitrogen 22 mg/dL (7-17); Calcium 9.6 mg/dL (8.4-10.2); Carbon Dioxide 26 mmol/L (22-30); Chloride 105 mmol/L (98-107); Glucose 90 mg/dL (74-99); Non-African American GFR(CKD) 52 (>60 ml/min/1.73 sqM); Potassium 3.6 mmol/L (3.5-5.1); Sodium 140 mmol/L (137-145)
[2024-07-24] MEDS: HEPARIN SODIUM (1,000 UNIT/ML) 1,000 UNIT in SODIUM CHLORIDE 0.9% 1,000 ML IRRIGATION ONE (10:42)
[2024-07-24] MEDS: HEPARIN SODIUM,PORCINE (1 ML) 2,500 UNIT in SODIUM CHLORIDE 0.9% 250 ML IRRIGATION ONE (10:42)
[2024-07-24] MEDS: IV FLUID CONTINUATION 1,000 ML IV ONE (10:42)
[2024-07-24] MEDS: MIDAZOLAM 2 MG/2 ML VIAL IVP ONE ×2 (10:47→11:03)
[2024-07-24] MEDS: LIDOCAINE 1% INJ 10MG/ML (20 ML MDV) SQ ONE (10:48)
[2024-07-24] MEDS: VERAPAMIL SYRINGE (5 MG/10 ML) INTRAARTER ONE (10:49)
--- NOTE | 2024-07-24 10:51 | PCN ---
PROCEDURE NOTE PROCEDURE PERFORMED: Right-sided thoracentesis. PREOPERATIVE DIAGNOSIS: Right pleural effusion. POSTOPERATIVE DIAGNOSIS: Right pleural effusion. ANESTHESIA: 2 mL of 1% lidocaine. DESCRIPTION OF PROCEDURE: The patient was placed in the sitting upright position. The area below the right scapula was prepared in a sterile fashion. Drapes were applied. At the level of the 8th intercostal space and tip of the scapula, the area was locally anesthetized. Then, a 26-gauge needle was inserted at the same site, advanced into the pleural space until the fluid was obtained. Then, a small tiny incision was made at the same site. Standard thoracentesis catheter and needle used, advanced into the pleural space and as soon as the fluid was obtained, the catheter was advanced into the pleural space and the needle was pulled out. Drained a total of 1000 cc of straw-colored fluid from the right pleural space, fluid was sent for different diagnostic studies, procedure was well tolerated, no complications. Chest x-ray showed no evidence of pneumothorax and a complete resolution of the right-sided pleural effusion. MMODL / IJN: [id number] /
--- NOTE | 2024-07-24 10:51 | PN ---
PROGRESS NOTE DATE OF SERVICE: 07/23/2024 CHIEF COMPLAINT: Acute congestive heart failure with new onset atrial fibrillation and tachycardia. HISTORY OF PRESENT ILLNESS: This lady is going down for thoracentesis. She is starting to get quite depressed. It is beginning to like her major problem on top of her atrial fibrillation is significant mitral insufficiency. She is asking all kinds of questions about how this can and will be handled. She was encouraged to talk to Cardiology, but she was told that it is possible that she may need mitral valve repair or replacement. PHYSICAL EXAMINATION: CHEST: Demonstrates poor breath sounds at the bases with rales. CARDIAC: Reveals atrial fibrillation. ABDOMEN: Soft, nontender. IMPRESSION: 1. New onset atrial fibrillation with rapid ventricular response. 2. Acute congestive heart failure. 3. Bilateral pleural effusions. 4. Mitral and pulmonic insufficiency. PLAN: Continue with current cardiac workup and wait to see what is recommended for management of her various problems. MMODL / IJN: [id number] /
[2024-07-24] MEDS: HEPARIN SODIUM 1,000 UN/ML (10ML VL) IV ONE (10:52)
[2024-07-24] MEDS: IOPAMIDOL-370 100ML BTL INJ ONE (11:05)
[2024-07-24] MEDS ORDERED: RX INFO: IV CONTRAST WAS GIVEN 1 EACH MISC MISCELLANE PRN (11:31)
[2024-07-24 11:35] VITALS: BMI 24.4
[2024-07-24] MEDS: SODIUM CHLORIDE 0.9% 1,000 ML IV SCH (11:44)
--- NOTE | 2024-07-24 14:49 | P.PN ---
Subjective Progress Note Date: 07/24/24 This is a very pleasant 83-year-old female patient with a known history of hypertension, hyperlipidemia, colitis, lifelong non-smoker who presented here to the emergency room back on 07/17/2024 with complaints of increasing shortness of breath and dyspnea on exertion. Chest x-ray revealed evidence of pulmonary venous congestion with basilar effusions and probable complete compressive atelectasis. Borderline cardiomegaly. EKG revealed atrial fibrillation with a rapid ventricular response. Echocardiogram revealed mildly impaired left ventricular systolic function with an ejection fraction of 45%. There is severe mitral regurgitation. Mild aortic stenosis. Moderate pulmonary hypertension. White count 10.5. Hemoglobin 14.0. Platelets 361. Sodium 137. Potassium 4.1. Bicarb 20. BUN 28. Creatinine 0.89. Glucose 110. proBNP 1970. She is seen today in consultation on the selective care unit. She is currently sitting up in bed. Awake and alert in no acute distress. She states she is breathing a bit easier since she arrived here to the emergency room. She has been receiving diuretics. She is diuresing well. No accurate LUIS recorded. She is maintaining good O2 saturations in the high 90s on 2 L/min per nasal cannula. She has been afebrile. Hemodynamically stable. The patient is seen today July 23, 2024 in follow-up on the regular medical floor. Currently sitting up at the bedside. Awake and alert in no acute distress. Maintaining O2 saturations in the mid 90s on room air oxygen. She has been afebrile. Hemodynamically stable. Ultrasound of the chest did reveal a right sided pleural effusion measuring 12.1 cm and a left-sided pleural effusion measuring 9.5 cm however the left side did have lung tissue close to the skin. She did undergo a right sided thoracentesis today with Dr. Mullins. 1 L of cloudy yellow fluid was returned. Cytology, fluid analysis and cultures pending. Follow-up chest x-ray revealed no evidence of pneumothorax. LDH 211. Total protein 6.6. She remains on Lasix 40 mg IV daily. She is diuresing well. No accurate intake or output. The patient is seen today July 24, 2024 in follow-up on the selective care unit. She is currently sitting up at the bedside. Awake and alert in no acute distress. Multiple family members in her room. He is breathing easier today compared to yesterday. She is maintaining O2 saturations in the upper 90s on room air. She has been afebrile. Hemodynamically stable. Oral fluid analysis is transudate with a protein of 1.8 and an LDH of 73. Cultures and cytology pending. Sodium 140. Potassium 3.6. Bicarb 26. BUN 22. Creatinine 1.01. She is continued on IV Lasix at 40 mg daily. Herman remains on hold. Awaiting heart catheterization today. Objective - Vital Signs Vital signs: Vital Signs Temp 97.4 F L 07/24/24 11:46 Pulse 56 L 07/24/24 11:46 Resp 18 07/24/24 11:46 BP 135/74 07/24/24 11:46 Pulse Ox 97 07/24/24 11:46 FiO2 21 07/23/24 08:42 Intake & Output 07/23/24 07/24/24 07/24/24 18:59 06:59 18:59 Intake Total 560 20 60 Output Total 600 Balance 560 20 -540 Weight 62.6 kg 62.6 kg Intake: IV 20 20 60 Invasive Line 3 20 20 10 Oral 540 0 Output: Urine 600 Other: Voiding Method Toilet Toilet Toilet # Voids 1 1 2 - Exam GENERAL EXAM: Alert, pleasant 83-year-old female, sitting up at the bedside, on room air oxygen, comfortable in no apparent distress. HEAD: Normocephalic. EYES: Normal reaction of pupils, equal size. NOSE: Clear with pink turbinates. THROAT: No erythema or exudates. NECK: No masses, no JVD. CHEST: No chest wall deformity. LUNGS: Equal air entry with crackles in the bilateral bases. CVS: S1 and S2 normal with no audible murmur, regular rhythm. ABDOMEN: No hepatosplenomegaly, normal bowel sounds, no guarding or rigidity. SPINE: No scoliosis or deformity SKIN: No rashes CENTRAL NERVOUS SYSTEM: No focal deficits, tone is normal in all 4 extremities. EXTREMITIES: There is no peripheral edema. No clubbing, no cyanosis. Peripheral pulses are intact. - Labs CBC & Chem 7: 07/20/24 16:18 07/24/24 05:33 Labs: Abnormal Lab Results - Last 24 Hours (Table) 07/23/24 07/24/24 Range/Units 10:00 05:33 BUN 22 H (7-17) mg/dL Fluid Appearance Slightly Hazy A (Clear) Microbiology - Last 24 Hours (Table) 07/23/24 10:00 Acid Fast Bacilli Smear - Preliminary Pleural Fluid 07/23/24 10:00 Gram Stain - Preliminary Pleural Fluid Body Fluid Culture - Preliminary Assessment and Plan Assessment: Acute hypoxic respiratory failure secondary to an acute exacerbation of mild systolic congestive heart failure, left ventricular ejection fraction 45% and bilateral pleural effusions Bilateral pleural effusions, status post right sided thoracentesis July 23, 2024 with 1 L of fluid removed. Transudate. Cytology and cultures pending. No plans for thoracentesis on the left side due to lung tissue being near the pleura. Atrial fibrillation with rapid ventricular response, improved Severe mitral regurgitation Severe tricuspid regurgitation Mild aortic stenosis Moderate pulmonary hypertension History of hypertension Hyperlipidemia Lifelong non-smoker Plan: The patient was seen and evaluated Labs and medications reviewed Stable and on room air oxygen Continued on IV diuretics Eliquis remains on hold Plan is for heart catheterization today We will continue to follow I have personally seen and examined the patient, performed the documentation and the assessment and plan as written. Number of minutes spent on the visit: 10 Dictation was produced using [employer] dictation software. Please excuse any grammatical, word or spelling errors.
[2024-07-24] MEDS: APIXABAN 5 MG TAB PO SCH (20:28)
[2024-07-24] MEDS: SACUBITRIL/VALSARTAN 24 MG-26 MG TABLET PO SCH (20:28)
--- NOTE | 2024-07-24 21:47 | CC ---
CARDIAC CATHETERIZATION REPORT INDICATIONS: Mitral regurgitation with new onset congestive heart failure. PROCEDURE NOTE: After obtaining informed consent, left heart catheterization and coronary angiogram were performed via the right radial artery using standard Mima catheters. The patient tolerated the procedure well without any obvious immediate complications. The patient received moderate conscious sedation. Total sedation time was 18 minutes. Right radial artery access was obtained using the Seldinger technique. A 6-Maltese sheath was placed. Catheters and wires were floated into the ascending aorta under fluoroscopic guidance. The patient received verapamil and heparin per protocol. FINDINGS: 1. Hemodynamics: a. Left ventricular end-diastolic pressure is 11 mm. b.There is no significant gradient across the aortic valve. 2. Left ventriculogram: a.Left ventriculogram is performed in ROLLINS position. It shows a mildly dilated left ventricle with an ejection fraction of 50% and 3+ mitral regurgitation. 3. Angiographic data: a.Right coronary artery: Right coronary artery is a large dominant vessel and is free of stenosis. b.Left main coronary artery is a short vessel, divides into left anterior descending coronary artery and circumflex coronary artery. c.Circumflex coronary artery shows a mild nonobstructive plaque in the proximal portion. LAD shows mild nonobstructive disease. CONCLUSIONS: 1. Mild nonobstructive coronary artery disease. 2. Dilated left ventricle with 3+ mitral regurgitation. MMODL / IJN: [id number] /
--- NOTE | 2024-07-25 04:32 | PN ---
PROGRESS NOTE DATE OF SERVICE: 07/24/2024 CHIEF COMPLAINT: Acute congestive heart failure. HISTORY OF PRESENT ILLNESS: This lady is doing fairly well. She had a thoracentesis yesterday. She is becoming quite agitated and depressed. She states that she has not talked to anybody. She was encouraged to ask the physicians when they come in, what the tests are showing and what is to be done. So far, it looks like her main issue will be the mitral valve regurgitation. PHYSICAL EXAMINATION: VITAL SIGNS: Normal. HEART: It sounds as though she is back in sinus rhythm. ABDOMEN: Soft, nontender. IMPRESSION: 1. Acute congestive heart failure. 2. New onset atrial fibrillation with a rapid ventricular response. 3. Bilateral pleural effusions. 4. Mitral and tricuspid insufficiency. PLAN: She is going for heart catheterization today. She was encouraged to be sure that she talks with physicians afterwards. I also ran into her family in the lobby and encouraged them to be sure that they understand what the tests are showing, what they mean, and what next step in her management will be. She likely will require a mitral valve repair or replacement. MMODL / IJN: [id number] /
[2024-07-25 04:44] VITALS: PULSE 56; RESP 16
[2024-07-25 07:45] LABS: African American GFR (CKD) 74 (>60 ml/min/1.73 sqM); Anion Gap 6 mmol/L; Blood Urea Nitrogen 19 mg/dL (7-17); Calcium 8.9 mg/dL (8.4-10.2); Carbon Dioxide 25 mmol/L (22-30); Chloride 108 mmol/L (98-107); Glucose 88 mg/dL (74-99); Non-African American GFR(CKD) 64 (>60 ml/min/1.73 sqM); Potassium 3.2 mmol/L (3.5-5.1); Sodium 139 mmol/L (137-145)
[2024-07-25] MEDS: FUROSEMIDE 20 MG TAB PO SCH (11:19)
[2024-07-25 11:30] VITALS: TEMP 98
[2024-07-25 11:31] VITALS: BP 148/80
[2024-07-25] MEDS: POTASSIUM CHLORIDE ER 20 MEQ TAB.ER PO ONE (12:01)
[2024-07-25] MEDS: POTASSIUM CHLORIDE ER 20 MEQ TAB.ER PO STA (12:01)
--- NOTE | 2024-07-25 12:15 | P.DS ---
Providers Date of admission: 07/17/24 20:18 Expected date of discharge: 07/25/24 Attending physician: Tung Hinojosa Consults: 07/17/24 20:17 Consult Physician Routine Consulting Provider: Alexi Baig Consult Reason/Comments: NEW A-fib with RVR, CHF Do you want consulting provider notified?: Yes 07/22/24 11:55 Consult Physician Routine Consulting Provider: Lennie Mullins Consult Reason/Comments: SOB Do you want consulting provider notified?: Yes Primary care physician: Tung Hinojosa Hospital Course: Discharge diagnoses; Acute hypoxic respiratory failure acute exacerbation of mild systolic congestive heart failure, left ventricular ejection fraction 45% and bilateral pleural effusions Bilateral pleural effusions, status post right sided thoracentesis July 23, 2024 with 1 L of fluid removed. Atrial fibrillation with rapid ventricular response, improved Severe mitral regurgitation Severe tricuspid regurgitation Mild aortic stenosis Moderate pulmonary hypertension History of hypertension Hyperlipidemia Lifelong non-smoker Hospital course; This is a very pleasant 83-year-old female patient with a known history of hypertension, hyperlipidemia, colitis, lifelong non-smoker who presented here to the emergency room back on 07/17/2024 with complaints of increasing shortness of breath and dyspnea on exertion. Chest x-ray revealed evidence of pulmonary veno us congestion with basilar effusions and probable complete compressive atelectasis. Borderline cardiomegaly. EKG revealed atrial fibrillation with a rapid ventricular response. Echocardiogram revealed mildly impaired left ventricular systolic function with an ejection fraction of 45%. There is severe mitral regurgitation. Mild aortic stenosis. Moderate pulmonary hypertension. White count 10.5. Hemoglobin 14.0. Platelets 361. Sodium 137. Potassium 4.1. Bicarb 20. BUN 28. Creatinine 0.89. Glucose 110. proBNP 1970. Patient was admitted to internal medicine service, cardiology and pulmonology were consulted. Patient cardiac cath done that showed mild nonobstructive coronary disease. Patient also underwent thoracentesis right-sided with removal of 1 L of fluid. Patient had SAEID done that showed severe MR. At this time cardiology recommended discharging patient on Eliquis, amiodarone, Entresto. Patient to follow-up outpatient with cardiology at which time they will refer patient for surgery for mitral valve regurgitation. PHYSICAL EXAMINATION: GENERAL: The patient is alert and oriented x3, not in any acute distress. Well developed, well nourished. HEENT: Pupils are round and equally reacting to light. EOMI. No scleral icterus. No conjunctival pallor. Normocephalic, atraumatic. No pharyngeal erythema. No thyromegaly. CARDIOVASCULAR: S1 and S2 present. Murmur audible PULMONARY: Chest is clear to auscultation, no wheezing or crackles. ABDOMEN: Soft, nontender, nondistended, normoactive bowel sounds. No palpable organomegaly. MUSCULOSKELETAL: No joint swelling or deformity. EXTREMITIES: No cyanosis, clubbing, or pedal edema. NEUROLOGICAL: Gross neurological examination did not reveal any focal deficits. SKIN: No rashes. Dictation was produced using [employer] dictation software. please excuse any grammatical, word or spelling errors. Patient Condition at Discharge: Stable Plan - Discharge Summary Discharge Rx Participant: Yes New Discharge Prescriptions: New Apixaban [Eliquis] 5 mg PO BID 30 Days #60 tab Metoprolol Tartrate [Lopressor] 100 mg PO BID 30 Days #60 tab Amiodarone [Cordarone] 200 mg PO BID 30 Days #40 tab Sacubitril/Valsartan [Entresto 24 mg-26 mg Tablet] 1 each PO BID 30 Days #60 tab Furosemide [Lasix] 20 mg PO DAILY 30 Days #30 tab Continue Zolpidem [Ambien] 15 mg PO HS Lansoprazole [Prevacid] 30 mg PO DAILY Famotidine [Pepcid] 20 mg PO HS Simvastatin [Zocor] 10 mg PO HS Discontinued amLODIPine [Norvasc] 5 mg PO DAILY Discharge Medication List Famotidine [Pepcid] 20 mg PO HS 07/17/24 [History] Lansoprazole [Prevacid] 30 mg PO DAILY 07/17/24 [History] Simvastatin [Zocor] 10 mg PO HS 07/17/24 [History] Zolpidem [Ambien] 15 mg PO HS 07/17/24 [History] Amiodarone [Cordarone] 200 mg PO BID 30 Days #40 tab 07/25/24 [Rx] Apixaban [Eliquis] 5 mg PO BID 30 Days #60 tab 07/25/24 [Rx] Furosemide [Lasix] 20 mg PO DAILY 30 Days #30 tab 07/25/24 [Rx] Metoprolol Tartrate [Lopressor] 100 mg PO BID 30 Days #60 tab 07/25/24 [Rx] Sacubitril/Valsartan [Entresto 24 mg-26 mg Tablet] 1 each PO BID 30 Days #60 tab 07/25/24 [Rx] Follow up Appointment(s)/Referral(s): Tung Hinojosa MD [Primary Care Provider] - 1-2 days Dylan Singer MD [STAFF PHYSICIAN] - 1 Week Activity/Diet/Wound Care/Special Instructions: Take amiodarone 200 mg twice daily for 1 week followed by 200 mg daily Discharge Disposition: HOME SELF-CARE
--- NOTE | 2024-07-25 12:36 | P.PN ---
Subjective HISTORY OF PRESENT ILLNESS: HPI: This is a 83-year-old lady with a known history of hypertension and hypercholesterolemia currently takes simvastatin and Norvasc. She sees Dr. Hinojosa as her primary care physician does not see a chemical weigher. She came in with increasing shortness of breath of 1 week duration without prior history of any coronary disease, COPD. She has noted some fluttering feeling in the chest for about a week and felt that her stamina has decreased. She was found to be in atrial fibrillation with a moderately rapid ventricular rate has been placed on Cardizem drip with some modest improvement in rate. She is resting comfortably denies any chest pain at rest but does have some shortness of breath with activity. 07/19 Patient seen and examined. Patient remains in atrial fibrillation but rate is much better controlled. Yesterday, she was started on Eliquis as well as Lopressor 50 mg twice daily and Cardizem drip was discontinued. Echocardiogram reveals EF of 45%, severe mitral regurgitation, moderate pulmonary hypertension with RVSP 50 mmHg, severe tricuspid regurgitation, aortic valve sclerosis. 07/20/2024 Patient examined this morning at bedside. Patient complains of feeling tired. She also reports having a panic attack last night. She currently denies any chest pain or pressure. Denies any shortness of breath. Denies dizziness or lightheadedness. Telemetry reveals atrial fibrillation with heart rate around 110. 07/21/2024 Patient examined this morning the bedside. Patient currently denies chest pain or pressure. She denies shortness of breath. She remains in atrial fibrillation with a heart rate in the 80s. She complains of fatigue with exertion. 07/23/2024 Patient underwent SAEID yesterday revealing severe mitral regurgitation and normal LV systolic function. Patient examined this morning at the bedside. She reports mild shortness of breath. Denies any chest pain or pressure. Patient underwent thoracentesis today with pulmonary medicine with removal of 1000 cc from the right pleural space. Eliquis remains on hold. 07/25/2024 Patient is status post cardiac catheterization yesterday revealing mild nonobstructive CAD. Patient examined this morning at the bedside. She denies chest pain or pressure. Vital signs are stable. She is hoping to be discharged home today. PHYSICAL EXAM: VITAL SIGNS: Reviewed. GENERAL: Well-developed in no acute distress. NECK: Supple. No JVD or thyromegaly LUNGS: Respirations even and unlabored. Lungs essentially clear to auscultation bilaterally. HEART: Regular rate and rhythm. S1 and S2 heard. Systolic murmur noted. EXTREMITIES: Normal range of motion. No clubbing or cyanosis. Peripheral pulses intact. No lower extremity edema ASSESSMENT: New onset atrial fibrillation with RVR Severe mitral regurgitation Moderate tricuspid regurgitation Cardiomyopathy, ischemic versus nonischemic, EF 45% Moderate pulmonary hypertension Hypertension Hyperlipidemia Pleural effusion, status post right thoracentesis with removal of 1 L PLAN: Continue current cardiac medications Patient is stable for discharge home today from a cardiac standpoint Patient to follow-up postdischarge with Dr. Singer Patient will be referred for mitral valve clipping on an outpatient basis Nurse practitioner note has been reviewed by physician. Signing provider agrees with the documented findings, assessment, and plan of care documented by HOME CARE PHYSICAL THERAPIST as a scribe. Objective - Vital Signs Vital signs: Vital Signs Temp 98.0 F 07/25/24 11:30 Pulse 56 L 07/25/24 11:30 Resp 16 07/25/24 11:30 BP 156/88 07/25/24 11:30 Pulse Ox 98 07/25/24 11:30 FiO2 21 07/23/24 08:42 Intake & Output 07/24/24 07/25/24 07/25/24 18:59 06:59 18:59 Intake Total 70 20 10 Output Total 1175 Balance -1105 20 10 Weight 62.6 kg 62.1 kg Intake: IV 70 20 10 Invasive Line 3 20 20 10 Oral 0 Output: Urine 1175 Other: Voiding Method Toilet Toilet Toilet # Voids 2 1 - Labs CBC & Chem 7: 07/20/24 16:18 07/25/24 06:32 Labs: Abnormal Lab Results - Last 24 Hours (Table) 07/25/24 Range/Units 06:32 Potassium 3.2 L (3.5-5.1) mmol/L Chloride 108 H (98-107) mmol/L BUN 19 H (7-17) mg/dL Microbiology - Last 24 Hours (Table) 07/23/24 10:00 Gram Stain - Preliminary Pleural Fluid Body Fluid Culture - Preliminary 07/23/24 10:00 Acid Fast Bacilli Smear - Preliminary Pleural Fluid
--- NOTE | 2024-07-25 14:17 | P.PN ---
Subjective Progress Note Date: 07/25/24 Principal diagnosis: Acute exacerbation of mild systolic congestive heart failure with bilateral pleural effusions and acute hypoxic respiratory failure This is a very pleasant 83-year-old female patient with a known history of hypertension, hyperlipidemia, colitis, lifelong non-smoker who presented here to the emergency room back on 07/17/2024 with complaints of increasing shortness of breath and dyspnea on exertion. Chest x-ray revealed evidence of pulmonary venous congestion with basilar effusions and probable complete compressive atelectasis. Borderline cardiomegaly. EKG revealed atrial fibrillation with a rapid ventricular response. Echocardiogram revealed mildly impaired left ventricular systolic function with an ejection fraction of 45%. There is severe mitral regurgitation. Mild aortic stenosis. Moderate pulmonary hypertension. White count 10.5. Hemoglobin 14.0. Platelets 361. Sodium 137. Potassium 4.1. Bicarb 20. BUN 28. Creatinine 0.89. Glucose 110. proBNP 1970. She is seen today in consultation on the selective care unit. She is currently sitting up in bed. Awake and alert in no acute distress. She states she is breathing a bit easier since she arrived here to the emergency room. She has been receiving diuretics. She is diuresing well. No accurate LUIS recorded. She is maintaining good O2 saturations in the high 90s on 2 L/min per nasal cannula. She has been afebrile. Hemodynamically stable. The patient is seen today July 23, 2024 in follow-up on the regular medical floor. Currently sitting up at the bedside. Awake and alert in no acute distress. Maintaining O2 saturations in the mid 90s on room air oxygen. She has been afebrile. Hemodynamically stable. Ultrasound of the chest did reveal a right sided pleural effusion measuring 12.1 cm and a left-sided pleural effusion measuring 9.5 cm however the left side did have lung tissue close to the skin. She did undergo a right sided thoracentesis today with Dr. Mullins. 1 L of cloudy yellow fluid was returned. Cytology, fluid analysis and cultures pending. Follow-up chest x-ray revealed no evidence of pneumothorax. LDH 211. Total protein 6.6. She remains on Lasix 40 mg IV daily. She is diuresing well. No accurate intake or output. The patient is seen today July 24, 2024 in follow-up on the selective care unit. She is currently sitting up at the bedside. Awake and alert in no acute distress. Multiple family members in her room. He is breathing easier today compared to yesterday. She is maintaining O2 saturations in the upper 90s on room air. She has been afebrile. Hemodynamically stable. Oral fluid analysis is transudate with a protein of 1.8 and an LDH of 73. Cultures and cytology pending. Sodium 140. Potassium 3.6. Bicarb 26. BUN 22. Creatinine 1.01. She is continued on IV Lasix at 40 mg daily. Herman remains on hold. Awaiting heart catheterization today. Patient was seen today on 07/25/2024, patient underwent cardiac catheterization yesterday, she had minimal occlusive disease, now she is being considered for referral to [facility] for mitral valve repair. Patient is doing well, she is on room air, not in any distress, I believe the patient will be cleared for discharge by cardiology today and follow-up on outpatient basis. Remains on Lasix. Objective - Vital Signs Vital signs: Vital Signs Temp 98.0 F 07/25/24 11:30 Pulse 56 L 07/25/24 11:30 Resp 16 07/25/24 11:30 BP 156/88 07/25/24 11:30 Pulse Ox 98 07/25/24 11:30 FiO2 21 07/23/24 08:42 Intake & Output 07/24/24 07/25/24 07/25/24 18:59 06:59 18:59 Intake Total 70 20 10 Output Total 1175 Balance -1105 20 10 Weight 62.6 kg 62.1 kg Intake: IV 70 20 10 Invasive Line 3 20 20 10 Oral 0 Output: Urine 1175 Other: Voiding Method Toilet Toilet Toilet # Voids 2 1 - Exam GENERAL EXAM: 83-year-old pleasant in no distress on room air HEAD: Normocephalic. EYES: Normal reaction of pupils, equal size. NOSE: Clear with pink turbinates. THROAT: No erythema or exudates. NECK: No masses, no JVD. CHEST: No chest wall deformity. LUNGS: Mostly diminished breath sounds at the left base, right side is clear CVS: S1 and S2 normal with no audible murmur, regular rhythm. ABDOMEN: No hepatosplenomegaly, normal bowel sounds, no guarding or rigidity. SKIN: No rashes CENTRAL NERVOUS SYSTEM: No focal deficits, tone is normal in all 4 extremities. EXTREMITIES: There is no peripheral edema. No clubbing, no cyanosis. Peripheral pulses are intact. - Labs CBC & Chem 7: 07/20/24 16:18 07/25/24 06:32 Labs: Abnormal Lab Results - Last 24 Hours (Table) 07/25/24 Range/Units 06:32 Potassium 3.2 L (3.5-5.1) mmol/L Chloride 108 H (98-107) mmol/L BUN 19 H (7-17) mg/dL Microbiology - Last 24 Hours (Table) 07/23/24 10:00 Gram Stain - Preliminary Pleural Fluid Body Fluid Culture - Preliminary 07/23/24 10:00 Acid Fast Bacilli Smear - Preliminary Pleural Fluid Assessment and Plan Assessment: Impression: Acute hypoxic respiratory failure secondary to an acute exacerbation of mild systolic congestive heart failure, left ventricular ejection fraction 45% and bilateral pleural effusions Bilateral pleural effusions, status post right sided thoracentesis July 23, 2024 with 1 L of fluid removed. Transudate. Cytology and cultures pending. No plans for thoracentesis on the left side due to lung tissue being near the pleura. Atrial fibrillation with rapid ventricular response, improved Severe mitral regurgitation Severe tricuspid regurgitation Mild aortic stenosis Nonocclusive coronary artery disease Moderate pulmonary hypertension History of hypertension Hyperlipidemia Lifelong non-smoker Recommendation: Continue diuretics Continue Eliquis Agree with discharge planning and follow-up with cardiothoracic surgery for possible mitral valve repair. Time with Patient: Less than 30
[2024-07-25] MEDS ORDERED: AMIODARONE 200 MG TAB PO SCH (21:00)
== END 2024-07-25 13:15 | disposition home or self-care (01) | DRG 286 ==
LOC: EC 18:51 → 3SCARD 20:18
PROVIDERS: ADMIT Family Medicine; ATTEND Family Medicine
PROC: 3E033RZ Introduction of Antiarrhythmic into Peripheral Vein, Percutaneous Approach (ICD-10-PCS; 2024-07-17)
PROC: B246ZZ4 Ultrasonography of Right and Left Heart, Transesophageal (ICD-10-PCS; 2024-07-22)
PROC: 0W993ZX Drainage of Right Pleural Cavity, Percutaneous Approach, Diagnostic (ICD-10-PCS; 2024-07-23)
PROC: 4A023N7 Measurement of Cardiac Sampling and Pressure, Left Heart, Percutaneous Approach (ICD-10-PCS; principal; 2024-07-24 10:10)
PROC: B2111ZZ Fluoroscopy of Multiple Coronary Arteries using Low Osmolar Contrast (ICD-10-PCS; principal; 2024-07-24 10:10)
PROC: B2151ZZ Fluoroscopy of Left Heart using Low Osmolar Contrast (ICD-10-PCS; principal; 2024-07-24 10:10)
DX: I48.0 Paroxysmal atrial fibrillation (principal); I50.23 Acute on chronic systolic (congestive) heart failure; J96.01 Acute respiratory failure with hypoxia; I27.29 Other secondary pulmonary hypertension; J91.8 Pleural effusion in other conditions classified elsewhere; I13.0 Hypertensive heart and chronic kidney disease with heart failure and stage 1 through stage 4 chronic kidney disease, or unspecified chronic kidney disease; N18.31 Chronic kidney disease, stage 3a; I08.3 Combined rheumatic disorders of mitral, aortic and tricuspid valves; J98.11 Atelectasis; E78.00 Pure hypercholesterolemia, unspecified; F41.0 Panic disorder [episodic paroxysmal anxiety]; I25.5 Ischemic cardiomyopathy; I25.10 Atherosclerotic heart disease of native coronary artery without angina pectoris; Z79.899 Other long term (current) drug therapy; Z88.2 Allergy status to sulfonamides
CPT/HCPCS: 36415; 71045; 71046; 76604; 80048; 80053; 80061; 82945; 83615; 83735; 83880; 84155; 84157; 84443; 84484; 85025; 85610; 85730; 87070; 87102; 87116; 87205; 87206; 87496; 87498; 87502; 87529; 87634; 87635; 87798; 88108; 88305; 89050; 93005; 93306; 93312; 93320; 93325; 93458; 94640; 94760; 96365; 96366; 96368; 96375; 99291

== ENCOUNTER 2024-07-25 20:37 | Emergency (ER) | payer MEDICARE ==
[2024-07-25 20:41] VITALS: RESP 16
--- NOTE | 2024-07-25 21:17 | ED ---
General Adult HPI - General Chief complaint: Recheck/Abnormal Lab/Rx Stated complaint: Revisit Time Seen by Provider: 07/25/24 20:40 Source: patient Mode of arrival: ambulatory Limitations: no limitations - History of Present Illness Initial comments: 83-year-old female presents to the emergency department with questing medications. Patient was discharged from the hospital earlier today after she had a diagnosis of new onset A-fib. Patient was placed on several medications. States that she was unable to have her prescriptions filled by the pharmacy and she is worried about missing her nighttime doses of the medications. She has not currently missed any of the doses as of yet. Denies any symptoms of chest pain or shortness of breath. Requesting single doses of her medications until she can get to the pharmacy. No other alleviating, precipitating or modifying factors - Related Data Home Medications Medication Instructions Recorded Confirmed Famotidine [Pepcid] 20 mg PO HS 07/17/24 07/17/24 Lansoprazole [Prevacid] 30 mg PO DAILY 07/17/24 07/17/24 Simvastatin [Zocor] 10 mg PO HS 07/17/24 07/17/24 Zolpidem [Ambien] 15 mg PO HS 07/17/24 07/17/24 Previous Rx's Medication Instructions Recorded Amiodarone [Cordarone] 200 mg PO BID #40 tab 07/25/24 Amiodarone [Cordarone] 200 mg PO BID 30 Days #40 tab 07/25/24 Apixaban [Eliquis] 5 mg PO BID #60 tab 07/25/24 Apixaban [Eliquis] 5 mg PO BID 30 Days #60 tab 07/25/24 Furosemide [Lasix] 20 mg PO DAILY 30 Days #30 tab 07/25/24 Metoprolol Tartrate [Lopressor] 100 mg PO BID #60 tab 07/25/24 Metoprolol Tartrate [Lopressor] 100 mg PO BID 30 Days #60 tab 07/25/24 Sacubitril/Valsartan [Entresto 24 1 each PO BID #60 tab 07/25/24 mg-26 mg Tablet] Sacubitril/Valsartan [Entresto 24 1 each PO BID 30 Days #60 tab 07/25/24 mg-26 mg Tablet] Allergies Allergy/AdvReac Type Severity Reaction Status Date / Time Sulfa (Sulfonamide Allergy Unknown Verified 07/25/24 20:41 Antibiotics) Review of Systems ROS Statement: Those systems with pertinent positive or pertinent negative responses have been documented in the HPI. ROS Other: All systems not noted in ROS Statement are negative. Past Medical History Past Medical History: Atrial Fibrillation Additional Past Medical History / Comment(s): Colitis History of Any Multi-Drug Resistant Organisms: None Reported Past Surgical History: No Surgical Hx Reported Past Anesthesia/Blood Transfusion Reactions: No Reported Reaction Past Psychological History: No Psychological Hx Reported Smoking Status: Never smoker Past Alcohol Use History: Rare Past Drug Use History: None Reported General Exam Limitations: no limitations General appearance: alert, in no apparent distress Head exam: Present: atraumatic, normocephalic, normal inspection Eye exam: Present: normal appearance, PERRL, EOMI. Absent: scleral icterus, conjunctival injection, periorbital swelling ENT exam: Present: normal exam, mucous membranes moist Neck exam: Present: normal inspection. Absent: tenderness, meningismus, lymphadenopathy Respiratory exam: Present: normal lung sounds bilaterally. Absent: respiratory distress, wheezes, rales, rhonchi, stridor Cardiovascular Exam: Present: regular rate, normal rhythm, normal heart sounds. Absent: systolic murmur, diastolic murmur, rubs, gallop, clicks GI/Abdominal exam: Present: soft, normal bowel sounds. Absent: distended, tenderness, guarding, rebound, rigid Extremities exam: Present: normal inspection, full ROM, normal capillary refill. Absent: tenderness, pedal edema, joint swelling, calf tenderness Back exam: Present: normal inspection Neurological exam: Present: alert, oriented X3, CN II-XII intact Psychiatric exam: Present: normal affect, normal mood Skin exam: Present: warm, dry, intact, normal color. Absent: rash Course Vital Signs 07/25/24 07/25/24 20:38 21:32 Temperature 97.6 F 97.8 F Pulse Rate 70 76 Respiratory 16 16 Rate Blood Pressure 190/80 173/87 O2 Sat by Pulse 97 96 Oximetry Medical Decision Making - Medical Decision Making Was pt. sent in by a medical professional or institution (, PA, MEDICAL RECORDS ASSISTANT, urgent care, hospital, or alf...) When possible be specific @ -No Did you speak to anyone other than the patient for history (EMS, parent, family, police, friend...)? What history was obtained from this source @ -No Did you review nursing and triage notes (agree or disagree)? Why? @ -I reviewed and agree with nursing and triage notes Were old charts reviewed (outside hosp., previous admission, EMS record, old EKG, old radiological studies, urgent care reports/EKG's, alf records)? Report findings @ -I reviewed the discharge summary from today Differential Diagnosis (chest pain, altered mental status, abdominal pain women, abdominal pain men, vaginal bleeding, weakness, fever, dyspnea, syncope, headache, dizziness, GI bleed, back pain, seizure, CVA, palpatations, mental health, musculoskeletal)? @ -Medical noncompliance, A-fib with RVR, low literacy EKG interpreted by me (3pts min.). @ -Not done X-rays interpreted by me (1pt min.). @ -None done CT interpreted by me (1pt min.). @ -None done U/S interpreted by me (1pt. min.). @ -None done What testing was considered but not performed or refused? (CT, X-rays, U/S, labs)? Why? @ -None What meds were considered but not given or refused? Why? @ -None Did you discuss the management of the patient with other professionals (professionals i.e. , PA, MEDICAL RECORDS ASSISTANT, lab, RT, psych nurse, social studies teacher, electric stove mechanic, teacher, network security officer, pillowcase cutter)? Give summary @ -No Was smoking cessation discussed for >3mins.? @ -No Was critical care preformed (if so, how long)? @ -No Were there social determinants of health that impacted care today? How? (Homelessness, low income, unemployed, alcoholism, drug addiction, transportation, low edu. Level, literacy, decrease access to med. care, intermediate, rehab)? @ -No Was there de-escalation of care discussed even if they declined (Discuss DNR or withdrawal of care, Hospice)? DNR status @ -No What co-morbidities impacted this encounter? (DM, HTN, Smoking, COPD, CAD, Cancer, CVA, ARF, Chemo, Hep., AIDS, mental health diagnosis, sleep apnea, morbid obesity)? @ -A-fib with RVR Was patient admitted / discharged? Hospital course, mention meds given and route, prescriptions, significant lab abnormalities, going to OR and other pertinent info. @ -Upon arrival patient seen and evaluated in hallway 26. Thorough history and physical exam was performed. Patient was administered her nighttime dose of medications. She will be discharged, instructed to sampler pickup her medications at the pharmacy and take them starting tomorrow as directed. Patient was agreeable to this and she was discharged in stable condition Undiagnosed new problem with uncertain prognosis? @ -No Drug Therapy requiring intensive monitoring for toxicity (Heparin, Nitro, Insulin, Cardizem)? @ -No Were any procedures done? @ -No Diagnosis/symptom? @ -Medication dispensed, newly diagnosed A-fib with RVR Acute, or Chronic, or Acute on Chronic? @ -Acute Uncomplicated (without systemic symptoms) or Complicated (systemic symptoms)? @ -Complicated Side effects of treatment? @ -No Exacerbation, Progression, or Severe Exacerbation? @ -No Poses a threat to life or bodily function? How? (Chest pain, [place], [place], pneumonia, PE, COPD, DKA, ARF, appy, cholecystitis, CVA, Diverticulitis, Homicidal, Suicidal, threat to staff... and all critical care pts) @ -No Disposition Clinical Impression: Encounter for medication refill Disposition: HOME SELF-CARE Condition: Stable Instructions (If sedation given, give patient instructions): Medicine Refill (ED) Is patient prescribed a controlled substance at d/c from ED?: No Referrals: Tung Hinojosa MD [Primary Care Provider] - 1-2 days Time of Disposition: 21:16
[2024-07-25] MEDS: METOPROLOL TARTRATE 50 MG TAB PO STA (21:27)
[2024-07-25] MEDS: AMIODARONE 200 MG TAB PO STA (21:27)
[2024-07-25] MEDS: SACUBITRIL/VALSARTAN 24 MG-26 MG TABLET PO STA (21:27)
[2024-07-25] MEDS: APIXABAN 5 MG TAB PO STA (21:27)
[2024-07-25 21:35] VITALS: BP 173/87; PULSE 76; TEMP 97.8
== END 2024-07-25 21:33 | disposition home or self-care (01) ==
LOC: EC 20:37
DX: Z76.0 Encounter for issue of repeat prescription (principal); I48.91 Unspecified atrial fibrillation; Z88.2 Allergy status to sulfonamides
CPT/HCPCS: 99282